=== PATIENT | male | born 1950 | race Caucasian/White ===

== ENCOUNTER 2018-05-11 05:31 | Inpatient (IN) | payer MEDICARE, BC, SELFPAY ==
[2018-04-26 11:10] VITALS: BP 129/73; PULSE 75; RESP 16; TEMP 36.8; O2SAT 97; BMI 37.5
[2018-04-26 12:11] LABS: Absolute Lymphocyte Count 1.28 X10^3/ul (0.83-4.51); Absolute Neutrophil Count 5.7 X10^3/uL (2.0-7.7); Basophil# 0.05 X10^3/uL; Basophil% 0.6 % (0-1); Eosinophil# 0.21 X10^3/uL; Eosinophils% 2.7 % (0-5); Hematocrit 42.9 % (40-54); Hemoglobin 14.7 g/dl (13.0-16.5); Lymphocyte # 1.28 X10^3/ul (4.0); Lymphocyte % 16.4 % (19-41); Mean Corp Hgb Conc 34.3 g/gl (32-36); Mean Corpuscular Hgb 30.2 pg (27.0-32.0); Mean Corpuscular Volume 88.3 fL (80-94); Mean Platelet Vol. 10.2 fl (6.2-12.0); Monocyte# 0.47 X10^3/uL; Neutrophil # 5.67 X10^3/uL (2.7-7.7); Neutrophil % 72.8 % (47-70); POSITIVE COUNT NO; POSITIVE DIFFERENTIAL NO; POSITIVE MORPHOLOGY NO; Platelet Count 187 K/mm3 (150-450); RBC Distribution Width CV 12.8 % (11.6-14.6); RBC Distribution Width SD 40.6 fl (35.1-43.9); Red Blood Count 4.86 M/mm3 (4.6-6.2); White Blood Count 7.8 K/mm3 (4.4-11.0)
[2018-04-26 12:26] LABS: Anion Gap 10 (5-15); BUN 16 mg/dL (7-18); BUN/Creat Ratio 17.2 RATIO (10-20); Calcium,Total 8.8 mg/dL (8.5-10.1); Chloride 106 mmol/L (98-107); Creatinine, Serum 0.93 mg/dL (0.70-1.30); EST Glomerular Filtration Rate 86 mL/min (>60); Est Glom Filt Rate - Afr Amer 104 mL/min (>60); Glucose 114 mg/dL (74-106); Potassium 3.8 mmol/L (3.5-5.1); Sodium Level 139 mmol/L (136-145)
--- NOTE | 2018-04-27 19:41 | PCM.HP.BLA ---
History and Physical DATE OF SURGERY: 05/11/2018 SCHEDULED PROCEDURE: Left Total Knee Arthroplasty HISTORY OF PRESENT ILLNESS: This is a 67-year-old male who has been having ongoing bilateral knee pain for several years. Patient states the right is worse than the left. Patient's pain is intermittent, dull, aching, and sharp patient has increased pain going up and down stairs and standing. He has difficult time getting up from a seated position and does notice clicking in his knees. Pain is located over the medial aspect of bilateral knees. Patient has difficult time with activities of daily living that includes stairs, running, or any rough terrain. Patient has tried conservative measures consisting of rest and previous cortisone injection by his family physician with minimal relief. He has been through home exercises with no relief in symptoms. He has tried compression with no relief in symptoms. She has been on Tylenol and [id number]-[id number] ibuprofen with minimal relief. She has had a total of 3 injections in each knee. He denies any previous surgery on bilateral knees. Patient has a history of hypertension as well as atrial fibrillation in which she has undergone ablations. We are getting surgical clearance from his primary care physician. Patient is on Xarelto. 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 After failing conservative measures and discussing all treatment options with Dr. Mark Gonzalez, the patient does wish to proceed with a left total knee arthroplasty. Patient is planned to undergo a right total knee arthroplasty 6 weeks after the left. Patient currently denies any chest pain, shortness of breath, fevers chills, recent infections. REVIEW OF SYSTEMS: ROS: Const: Denies change in appetite, fever,or weight change. CV: Reports irregular heartbeat, but denies chest pain and heart murmur. Resp: Reports SOB, but denies cough, pneumonia, tuberculosis and wheezing. GI: Denies constipation, diarrhea, difficulty swallowing, heartburn, nausea, bloody stools and vomiting. : Urinary: denies incontinence. Musculo: Reports leg swelling and weakness, but denies limp and trouble walking. Skin: Denies Raynaud's, history of shingles and tattoo. Neuro: Denies ambulatory dysfunction, dizziness, numbness/tingling and tremor. Psych: Denies anxiety, insomnia and stress. Armando/Lymph: Denies anemia, bleeding/bruising tendency and past transfusion. Reviewed, no changes. PAST MEDICAL HISTORY: Advance Care Plan: No Advance Directives Effective Date: 08/07/2017 PMH: Medical Problems: Arthritis, High Blood Pressure, A-Fib Accidents: None Surgical Hx: Cpyo Ablasion - (03/10/2017) LT Total Shoulder - (2011) Benjamín Manning Anesthesia Complications: None Assistive Devices: Glasses Reviewed, no changes. SOCIAL HISTORY: SH: Marital: .Occupation: Retired.Work Status: Retired.Hand Dominance: Right-handed. Personal Habits: Cigarette Use: Never Smoked Cigarettes.Alcohol: Denies use.Drug Use: Denies Use.Enjoy Exercising: Exercises 1-3 X/Week. Reviewed, no changes. VITALS: Ht: 66.5 Wt: 234lb Wt k.142 BMI: 37.2 BP: 140/70 Pulse: 78 Resp: 20 T: 97.3 T: 36.3C ALLERGIES: Lasix Hydrochlorothiazide MEDICATIONS: Xarelto 20 mg 1 by mouth every day, Metoprolol 50 mg 1 tab PO bid, Amlodipine Besylate 2.5 mg 1 by mouth every day, Vitamin D3 1 cap PO daily, Fish Oil 1200 mg 1 cap PO daily, Centrum Men 1 tab PO daily, Latanoprost 0.005 % 2 drops each eye daily, Tylenol Extra Strength 500 mg prn, Omeprazole 20 mg 1po qday PRE-OP EXAM: General appearance:NORMAL Other: Eyes: Conjunctivae and lids: NORMAL Pupils: ERR Ears, Nose, Mouth, and Throat: NORMAL Other: Inspection of lips, teeth and gums: NORMAL Other: Neck: Examination of neck: no masses noted. Respiratory: Assessment of respiratory effort: NORMAL Other: Auscultation of lungs: clear to auscultation no wheezes, rhonchi or rales. Cardiovascular: Auscultation of heart: regular rate and rhythm, no murmurs, gallops or rubs. Exam of carotid arteries: NORMAL Other: Gastrointestinal: Exam of abdomen: soft, nontender, nondistended bowel sounds present. PHYSICAL EXAMINATION: Patient does walk with an antalgic gait. Patient has varus alignment of bilateral knees. Patient's left knee has tenderness to palpation over the medial joint line. There is minimal effusion. Patient has partial correction of the varus alignment. Stable to varus and valgus stress test. Range of motion is 0 extension to 100 of flexion. Right knee range of motion 0 of extension to 110 flexion. Sensation is intact to light touch. Neurovascularly intact. IMAGING STUDIES: X-rays of bilateral knees reveal varus alignment with medial joint space narrowing, subchondral sclerosis, and osteophyte formation consistent with severe bilateral tricompartmental osteoarthritis. There is an osseous fragment in the suprapatellar pouch of the right knee. IMPRESSION: Impression: 1. Severe tricompartmental left knee osteoarthritis 2. Severe right knee tricompartmental osteoarthritis 3. Hypertension 4. History of atrial fibrillation with previous ablation PLAN: Dr. Gonzalez did discuss and review with the patient all treatment options including surgical versus nonsurgical options. Patient does wish to proceed with the above-stated procedure. Potential risks, benefits, and complications of the procedure were discussed in detail including but not limited to , infection, nerve and blood vessel damage, persistent pain, numbness, tingling, paresthesias, blood clot, pulmonary embolism, and requirement for possible further surgery. The patient expressed full understanding and has no further questions for the doctor. Patient does agree to proceed with the above-stated procedure and has signed the surgery consent form. This dictation was created using voice recognition software. Phonetic and/or grammatical errors may exist. ___ I have re-examined the patient. There are no clinical changes since date of exam. ___ See progress notes for changes. ___ Dictated on admission Date: Time: Signature:
--- NOTE | 2018-05-05 13:48 | CASEMGMT ---
Call placed to patient to discuss discharge needs after upcoming surgery. Patient plans to return home with assistance from . Outpatient physical therapy is set up at [facility] and will assist with transportation. Patient does not have a walker, was told that he would have one prescribed while in the hospital. Patient has a shower seat at home, no toilet riser. Will have bed/bath on 1st level of home. There are 2 steps from garage into home. Informed patient that RN-CM will likely follow up with him when he's in the hospital. Ivone Wayne LPN Clinical Support
[2018-05-11] VITALS (11 sets, daily range): BP systolic 97–135; BP diastolic 60–80; PULSE 56–91; RESP 16–18; TEMP 36.1–37.3; O2SAT 93–99; BMI 37.5
[2018-05-11] MEDS: Acetaminophen 500 MG Tablet 1000 MG PO ×3 (06:08→22:26)
[2018-05-11] MEDS: Celecoxib 200 MG Capsule 400 MG PO (06:08)
[2018-05-11] MEDS: oxyCODONE HCl Cr 10 MG Tablet PO (06:08)
[2018-05-11] MEDS: Lactated Ringers 1,000 ML 999 ML IV ×2 (06:33→08:15)
[2018-05-11] MEDS: Cefazolin 2 GM in 0.9% Normal Saline 100 ML IV (07:12)
--- NOTE | 2018-05-11 08:42 | OP.PCM_ITS ---
Report of Operation Date of Procedure: 05/11/18 Pre-Operative Diagnosis: Left knee primary osteoarthritis Post-Operative Diagnosis: Left knee primary osteoarthritis Surgery/Procedure Performed:: Left total knee arthroplasty Description of Surgical Findings:: Stable knee with good patella tracking, posterior stabilized press-fit knee examining officer: Shiva Sam Type of Anesthesia:: Spinal Anesthesiologist: Enrique Flores Special Medications: 2 g Ancef, 1 g TXA at incision, 1 g TXA closure, 10 mg Decadron, joint cocktail (5 mg Duramorph, 30 mL of 0.5% Ropivicaine, 1000 units of epinephrine, 30 mg of Toradol) Specimen's removed: Bony cuts Estimated Blood Loss (mL): 75 Fluids Replaced: 1500 mL crystalloid Description of Procedure: Implants used: 1. [place] size 5 press-fit triathlon posterior stabilized distal femoral component 2. Lissy size 6 press-fit tibial baseplate 3. Lissy X3 16 mm pS polyethylene 4. Lissy X3 35 mm asymmetric patella Brief history operative indications: 67-year-old M with history of left knee osteoarthritis with radiographic findings with loss of joint space, osteophyte formation and subchondral sclerosis. Failed conservative measures as mentioned in the H&P. Discussion of total knee arthroplasty as well as risk and benefits were discussed the patient including but not limited to blood loss, DVTs, PEs, neurovascular damage, general risk of anesthesia including loss of life, and stiffness or instability were discussed with patient. Patient demonstrated understanding and was able to sign informed consent. Procedure: On the date of procedure patient's left lower extremity was marked in the preoperative area. The patient was then taken back to the operating room where the patient was placed on the table in the supine position. All bony prominences were identified a well-padded. Anesthesia assumed control of the C-spine and airway and remained controlled throughout the remainder of the procedure. A tourniquet was placed on the left upper thigh and the leg was prepped in a sterile fashion. The surgeon then scrubbed at this time .Upon reentering the room left lower extremity was draped in a standard orthopedic fashion. A timeout was then called and everyone agreed upon the side, the site, the procedure to be performed, patient's identity and antibiotics given. Esmarch bandage was used to exsanguinate the extremity and the tourniquet was placed up to 250 mmHg with the knee in flexion. A midline skin incision was made and sharp dissection was taken down through skin subcutaneous tissue and fat. The standard medial parapatellar incision was made and the patella was subluxed laterally. The standard deep MCL release was done and the fat pad was resected. Next our attention was directed to the femur. Navigation pins were placed, navigation was registered. The distal femoral cutting block was pinned into place and 10 mm of distal femur resection was completed. The distal femoral cut was verified with navigation. The knee was then placed in deep flexion in the standard [employer] sizing guide was used to place the femoral component in 3? external rotation based on the posterior condyles. A size 5 4-in-1 cutting block was selected and pinned into place. The anterior cut was then made and checked for notching. The subsequent anterior chamfer cuts, posterior condylar cuts and posterior chamfer cuts were made while ensuring the MCL and LCL were protected. Our attention was then turned to the tibia where the navigation pins were placed, navigation was registered. Colto tibial cutting guide was used to make the appropriate tibial cut 90 degrees from the mechanical axis. Navigation was then used to verify the cut. A size 6 tibial base plate was selected. the knee was flexed to 90 degrees and the soft tissues and posterior osteophytes were removed from the joint. 40 cc of the periarticular injection was injected into the posterior medial corner of the joint. Knee was flexed up and the box cut was made for the femur. The appropriate trials were then placed on the femur and tibia. A trial polyethylene was trialed to ensure proper balancing and stability of the knee. Patella tracking, was then verified and corrected appropriately as needed. The appropriate tibial internal rotation was then marked with a bovie. Our attention was then directed to the patella. The patella was everted and a flat resection was made. The lug holes were drilled and the patella trial was placed. Patellar tracking was checked and deemed appropriate. Once we were happy lug holes were drilled for the femur and trial components were removed. Cement was mixed at this time and the tourniquet was let down the tibia was subluxed and pinned into place and the keel was punched and the canal was reamed. Final components were verified and opened, and cement was mixed in a vacuum. Lissy Simplex cement was used. The wound was copiously irrigated with normal saline. When the cement was ready the press-fit components were impacted into place starting with the tibia, femur and finally the patella cemented into place. The trial poly component was placed and the knee was placed in full extension. All excess cement was removed in the process. Once the cement had cured the tracking, alignment and balance were verified and a size 16 mm polyethylene component was placed. Once the final components were placed the wound was copiously irrigated with normal saline solution and the periarticular injection was given. The wound was closed in a layer curtis fashion using #1 vicryl interrupted sutures for the arthrotomy, 2-0 interrupted Vicryl suture for the subcuticular layer and nahed for final skin closure. A sterile compressive dressing was then placed. The patient was then awakened from anesthesia, transferred to the [facility] and transferred to the PACU for recovery. Post op plan DVT ppx: She will be restarted on his Xarelto, thigh high compression stockings Follow up: in office in 2 weeks for wound check PT: to start POD #0 at hospital, outpatient PT should be arranged. My physician assistant housekeeping manager was a vital part of this case. He was important in appropriate retraction during the case, and protection of soft tissues during bony cuts. His intimate knowledge of the case and my steps aided in safe and expedient completion of the procedure as well as appropriate position of the leg during the case. He was also vital in assisting with closure under my direct supervision. Grafts/Implants Used: [place] press-fit posterior stabilized triathlon total knee - Complications None - Admit VTE Documentation VTE Present on Admission: No VTE Mechan Device Prophylaxis: SCD's, Thigh High JANUARY Hose VTE Pharm Prophylaxis ordered?: Yes
--- NOTE | 2018-05-11 09:16 | RAD_ITS ---
STUDY: X-RAY - LEFT KNEE REASON FOR EXAM: Male, 67 years old. Postoperative left knee TECHNIQUE: 2 view(s) of the knee. COMPARISON: None. FINDINGS: The prosthetic components of the arthroplasty appear to be normally seated and articulated with appropriate post surgical features in the surrounding soft tissues. Surrounding osseous structures are otherwise acutely intact. RAD/Knee 1 or 2 Views IMPRESSION: Expected postsurgical features. Correlate with operative report. Electronically Signed: Candido Bazzi, at 10:09 EDT Tel , Service support ,
[2018-05-11] MEDS: Lactated Ringers 1,000 ML 125 ML IV ×2 (10:31→18:18)
[2018-05-11] MEDS: oxyCODONE 5 MG Tablet PO ×3 (12:51→22:31)
[2018-05-11] MEDS: Multivitamins,Ther W-Minerals Tablet 1 TABLET PO (12:52)
[2018-05-11] MEDS: Famotidine 20 MG Tablet PO (12:52)
[2018-05-11] MEDS: Senna/Docusate Sodium 1 Tablet 2 TABLET PO ×2 (12:52→22:26)
[2018-05-11] MEDS: Cefazolin 1 GM/50 ML BAG IV ×2 (14:23→22:26)
--- NOTE | 2018-05-11 16:55 | PN_ITS ---
Subjective: Patient is a 67-year-old male with past medical history of A. fib status post ablation x2 and on Xarelto, and hypertension as well as arthritis of the left knee. He status post total knee replacement on 05/11/2018. Hospitalist service was consulted to help with medical management. Patient seen and examined. He felt well and had no complaints. Pain was well controlled. He had his ablations done at [facility] and states he had to done with the last one being in 2017. He does not think he has been in A. fib since then but has remained on Xarelto as per guidelines. He denies any fever or chills, any cough or chest pain, any shortness of breath, any palpitations, any abdominal pain, any diarrhea or vomiting. 12 point review of systems is otherwise negative. Labs and vitals reviewed. Vitals/I&O's: Vital Signs Temp Pulse Resp BP Pulse Ox 98.5 F 76 18 106/63 93 05/11/18 14:32 05/11/18 14:32 05/11/18 14:32 05/11/18 14:32 05/11/18 14:32 Oxygen Flow Rate (L/min) 2 Oxygen Delivery Method Room Air Weight: 236 lb 8.896 oz Body Mass Index (BMI) 37.5 Intake and Output for Last 24 Hours 05/09/18 05/10/18 05/11/18 23:59 23:59 23:59 Intake Total 1939 Balance 1939 General: Alert, Oriented x3, Cooperative, No apparent distress HEENT: Atraumatic, PERRLA, EOMI, Normocephalic Oral: Moist Mucosa Neck: Supple, No JVD, Negative Carotid Bruits Lungs: Clear to auscultation, Normal air movement, No rhonchi, No wheeze, No rales Cardiovascular: Regular rate, Regular Rhythm, Normal S1, Normal S2, No murmurs Abdomen: Bowel Sounds Present, Soft, Non Tender, Non-Distended, No Hepato- splenomegaly Extremities: No clubbing, No cyanosis, No edema, Capillary Refill Less than 3 Seconds Skin: No rashes, No breakdown Musculoskeletal: - - left knee bandaged; SCDs in place Lymphatic: No Cervical, Supraclavicular, or Inguinal Adenopathy Neurological: Cranial nerves II-XII grossly intact, Neuro grossly intact Psych/Mental Status: Normal Affect, Appropriate, Alert and oriented to time, place, person, mood and affect Current Medications Acetaminophen (Tylenol) 1,000 mg PO Q8 [facility] Last Admin: 05/11/18 14:23 Dose: 1,000 mg Amlodipine Besylate (Norvasc) 10 mg PO DAILY [facility] Cholecalciferol (Vitamin D) 2,000 unit PO DAILYCM [facility] Last Admin: 05/11/18 12:52 Dose: 2,000 unit Famotidine (Pepcid) 20 mg PO DAILY [facility] Last Admin: 05/11/18 12:52 Dose: 20 mg Cefazolin Sodium () 1 gm in 50 mls @ 150 mls/hr IV Q8H [facility] Stop: 05/11/18 23:19 Last Admin: 05/11/18 14:23 Dose: 150 mls/hr Lactated Ringer's () 1,000 mls @ 125 mls/hr IV .Q8H [facility] Last Admin: 05/11/18 10:31 Dose: 125 mls/hr Ketorolac Tromethamine (Toradol) 15 mg IV Q6H PRN PRN PRN Reason: MILD-MOD PAIN (1-5/10) Latanoprost (Xalatan Opthalmic) 1 drop OPHTHALMIC QHS [facility]) [facility] Metoprolol Tartrate (Lopressor (Beta Laurita)) 50 mg PO BID [facility] Morphine Sulfate () 2 - 4 mg IV Q2H PRN PRN PRN Reason: SEVERE PAIN (6-10/10) Morphine Sulfate () 2 - 4 mg IV Q2H PRN PRN PRN Reason: SEVERE PAIN (6-10/10) Multivitamins/Minerals (Multivitamin With Minerals) 1 tablet PO DAILY@0800 [facility] Last Admin: 05/11/18 12:52 Dose: 1 tablet Nutritional Formula (Lactose Free) (Ensure Clear) 120 ml PO TIDCM [facility] Last Admin: 05/11/18 12:58 Dose: 120 ml Ondansetron HCl (Zofran) 4 mg IV Q8H PRN PRN PRN Reason: NAUSEA Oxycodone HCl (Oxyir) 5 - 10 mg PO Q4H PRN PRN PRN Reason: MOD-SEVERE PAIN (4-10/10) Last Admin: 05/11/18 12:51 Dose: 10 mg Pantoprazole Sodium (Protonix) 20 mg PO DAILY PRN PRN PRN Reason: HIATAL HERNIA Promethazine HCl (Phenergan) 12.5 mg IM Q6H PRN PRN; Protocol PRN Reason: NAUSEA/VOMITING Rivaroxaban (Xarelto) 20 mg PO DAILY [facility] Senna/Docusate Sodium (Senokot-S, Padmini-Colace) 2 tablet PO BID [facility] Last Admin: 05/11/18 12:52 Dose: 2 tablet Sodium Chloride () 5 - 30 ml IV UD PRN PRN Reason: SALINE FLUSH Diagnostic Data Knee X-Ray 05/11/18 09:16 IMPRESSION: Expected postsurgical features. Correlate with operative report. Electronically Signed: Candido Bazzi, at 10:09 EDT Tel , Service support , Medical Necessity - Tobacco Use Smoking Status: Never smoker Assessment/Plan 67-year-old man who is status post left knee replacement on account of arthritis. 1. Left knee arthritis s/p left knee replacement- today is POD 0 * pain well controlled * management as per orthopedics * pain meds as per orthopedics 2. Afib s/p ablation x 2 * last had ablation in 2017 at [facility] * xarelto 20m daily on hold currently o/a of surgery * to resume as per orthopedics. * 3. Hypertension * on metoprolol 50mg bid and amlodipine 10mg daily. says his BP usually runs in 130-140s systolic * BP after surgery has been in mainly 100s and 110s. Currently receiving IVF * If BP remains in 100s and 110s, will hold BP meds till tomorrow morning o/a of risk of hypotension after surgery * * DVT prophylaxis: SCDs. To resume xarelto tomorrow, if orthopedics agrees Code status: full code Thank you for the courtesy of the consult. We will continue to follow with you Code Visit Inpatient E&M: 43435 Subs Hosp L2
[2018-05-11] MEDS: Meloxicam 7.5 MG Tablet PO (18:18)
[2018-05-11] MEDS: Metoprolol Tartrate 50 MG Tablet PO (22:26)
[2018-05-11] MEDS: Latanoprost 0.005% 1 Bottle 1 DRP OPHTHALMIC (22:27)
[2018-05-12 02:15] VITALS: BP 113/70; PULSE 71; RESP 16; TEMP 36.8; O2SAT 94
[2018-05-12] MEDS: Acetaminophen 500 MG Tablet 1000 MG PO ×2 (06:10→14:57)
[2018-05-12 06:12] LABS: Hematocrit 38.8 % (40-54); Hemoglobin 13.4 g/dl (13.0-16.5); Mean Corp Hgb Conc 34.5 g/gl (32-36); Mean Corpuscular Hgb 30.8 pg (27.0-32.0); Mean Corpuscular Volume 89.2 fL (80-94); Mean Platelet Vol. 10.5 fl (6.2-12.0); Platelet Count 182 K/mm3 (150-450); RBC Distribution Width CV 12.7 % (11.6-14.6); RBC Distribution Width SD 40.6 fl (35.1-43.9); Red Blood Count 4.35 M/mm3 (4.6-6.2); White Blood Count 17.9 K/mm3 (4.4-11.0)
[2018-05-12 06:15] LABS: Scan Indicated on CBC? Y/N NO
[2018-05-12 06:31] LABS: Anion Gap 10 (5-15); BUN 18 mg/dL (7-18); BUN/Creat Ratio 19.4 RATIO (10-20); Calcium,Total 8.9 mg/dL (8.5-10.1); Chloride 108 mmol/L (98-107); Creatinine, Serum 0.93 mg/dL (0.70-1.30); EST Glomerular Filtration Rate 86 mL/min (>60); Est Glom Filt Rate - Afr Amer 104 mL/min (>60); Glucose 107 mg/dL (74-106); Potassium 4.2 mmol/L (3.5-5.1); Sodium Level 142 mmol/L (136-145)
--- NOTE | 2018-05-12 06:47 | PN.ORTHO_ITS ---
Subjective: The patient was sitting in bedside chair upon examination. Patient denies any chest pain, shortness of breath, dizziness, lightheadedness, nausea or vomiting, or calf pain. Pain is controlled on medications. No adverse overnight events. Patient does wish to try to go home today. Patient has history of atrial fibrillation and takes Xarelto. Objective: Vital signs stable and afebrile. Patient is able to plantarflex and dorsiflex actively. Sensation is intact to light touch to saphenous, sural, superficial and deep peroneal, and tibial distribution. Dressing is mild drainage distal one third. Negative Homans bilaterally, negative signs and symptoms of DVT. - Physical Exam General: Alert, Oriented x3, Cooperative, No apparent distress Vital Signs Temp Pulse Resp BP Pulse Ox 98.2 F 71 16 113/70 94 05/12/18 02:15 05/12/18 02:15 05/12/18 02:15 05/12/18 02:15 05/12/18 02:15 Oxygen Flow Rate (L/min) 2 Oxygen Delivery Method Room Air Weight: 107.3 kg Body Mass Index (BMI) 37.5 Intake and Output for Last 24 Hours 05/10/18 05/11/18 05/12/18 23:59 23:59 23:59 Intake Total 3422 / 3422 1542 / 1542 Balance 3422 / 3422 1542 / 1542 Laboratory Tests Past 24 Hrs 05/12/18 05/12/18 05:30 05:30 WBC 17.9 H RBC 4.35 L Hgb 13.4 Hct 38.8 L MCV 89.2 MCH 30.8 MCHC 34.5 RDW 12.7 RDW Differential 40.6 Plt Count 182 MPV 10.5 Sodium 142 Potassium 4.2 Chloride 108 H Carbon Dioxide 24.0 Anion Gap 10 BUN 18 Creatinine 0.93 Estim Creat Clear Calc 68.60 Est GFR (MDRD) Af Amer 104 Est GFR (MDRD) Non-Af 86 BUN/Creatinine Ratio 19.4 Glucose 107 H Calcium 8.9 Medical Necessity - Tobacco Use Smoking Status: Never smoker Assessment/Plan 1. S/P left total knee arthroplasty POD #1 2. Continue Pain Medications: Tylenol and OxyIR 3. DVT Prophylaxis: Patient has been placed back on his Xarelto 4. PT/OT: Weightbearing as tolerated 5. H & H: 13.4/38.8, asymptomatic 6. Leukocytosis: Currently 17.9, afebrile. Patient did receive Decadron intraoperatively 7. Encouraged Incentive Spirometry 8. Disposition: Plan will be for possible discharge home today if patient tolerates physical therapy and pain is well controlled. Prescriptions will be E scribed to right [facility] in [place]. Patient will follow-up per postop instructions.
--- NOTE | 2018-05-12 06:51 | PCM.DC.TKR ---
Discharge Diet: No Restrictions Discharge Activity: May Not Drive May shower in (days): 1 - Turned dressing away from water Ice area for (Minutes): 20 - every hour while awake. Weight Bearing Status: Weight bearing as tolerated Elevate: Operative Extremity Additional Activity Instructions:: Wear elastic stockings for 2 weeks after your surgery. Call your doctor if your incision/area has: Continuous Slow Oozing, Sudden Increased Bleeding, Increased Pain/ Swelling, Increased Redness, Foul Smelling Discharge Call your doctor if you observe: Fever of 101 or Higher, Coldness, Increased Pain, Numbness or Tingling, Change in Color, Calf discomfort, Uncontrolled pain Remove Dressing in (days):: 4 - Okay to remove on May 16, 2018 Additional Instructions: Follow [facility]opedic postop instructions Allergies/Adverse Reactions: Allergies furosemide [From Lasix] Adverse Reaction (Verified 05/11/18 10:33) gout hydrochlorothiazide Adverse Reaction (Verified 05/11/18 10:33) gout Medications to take at Discharge Amlodipine [Norvasc] 10 mg PO DAILY 04/26/18 Cholecalciferol (Vitamin D3) [Vitamin D3] 2,000 unit PO DAILY 04/26/18 Latanoprost/Pf [Latanoprost 0.005% Eye Drop] 1 drop OP QHS 04/26/18 Metoprolol Tartrate [Lopressor (beta amanda)] 50 mg PO BID 04/26/18 Multivit-Min/FA/Lycopen/Lutein [Centrum Silver Men Tablet] 1 each PO DAILY 04/26/18 Omeprazole [Prilosec] 20 mg PO PRN PRN 04/26/18 Rivaroxaban [Xarelto] 20 mg PO DAILY 04/26/18 Acetaminophen [Tylenol] 1,000 mg PO Q8 #90 tablet 05/12/18 Meloxicam [Mobic] 7.5 mg PO BIDCM #30 tablet 05/12/18 Oxycodone [Oxyir] 5 - 10 mg PO Q4H PRN PRN 5 Days #60 tablet 05/12/18 Senna/Docusate Sodium [Senokot-S] 2 tablet PO BID #20 tablet 05/12/18 The following prescriptions were given: Oxycodone [Oxyir] 5 - 10 mg PO Q4H PRN PRN 5 Days #60 tablet PRN Reason: Mod-Severe Pain (4-04/28) Acetaminophen [Tylenol] 1,000 mg PO Q8 #90 tablet Meloxicam [Mobic] 7.5 mg PO BIDCM #30 tablet Senna/Docusate Sodium [Senokot-S] 2 tablet PO BID #20 tablet Primary Care Physician: Gilles Alberto DO [Primary Care Provider] - Test Results: Test results from this visit will be discussed in further detail at your follow-up appointment, if applicable. Please Follow Up With: [facility] point Physical therapy Please Follow Up With: Shiva Sam PA-C When: 05/24/18 @ 9:00 am
[2018-05-12 07:27] VITALS: PULSE 76
[2018-05-12] MEDS: Senna/Docusate Sodium 1 Tablet 2 TABLET PO (07:27)
[2018-05-12] MEDS: Multivitamins,Ther W-Minerals Tablet 1 TABLET PO (07:27)
[2018-05-12] MEDS: oxyCODONE 5 MG Tablet PO ×2 (07:27→11:54)
[2018-05-12] MEDS: Metoprolol Tartrate 50 MG Tablet PO (07:27)
[2018-05-12] MEDS: Meloxicam 7.5 MG Tablet PO (07:28)
[2018-05-12] MEDS: Famotidine 20 MG Tablet PO (07:28)
[2018-05-12] MEDS: Rivaroxaban 20 MG Tablet PO (07:28)
[2018-05-12] MEDS: amLODIPine 10 MG Tablet PO (07:28)
[2018-05-12 07:31] VITALS: BP 110/64; PULSE 76; RESP 16; TEMP 36.8; O2SAT 94
--- NOTE | 2018-05-12 10:40 | CASEMGMT ---
KALEE SCOTT Face to Face with patient for initial transition planning/care coordination assessment. KALEE SCOTT introduced self and role at [facility]. Patient lying in bed, alert and oriented. Patient willing to participate in assessment and is able to answer all questions appropriately. Care providers, pharmacy, and demographics verified. Patient wishes to discharge home and is setup with [facility] for outpatient therapy with providing transportation. Patient states that he needs a walker. Script obtained from Dr. Gonzalez for FWW. Patient agreeable to [employer] and referral sent and KALEE SCOTT arranged for walker to be delivered to hospital prior to discharge. Patient states he has no further needs or concerns at this time. CM to follow for discharge planning needs that may arise. Disposition Plan: Patient to discharge home with outpatient therapy, family support, and follow-up plans in place. Mary MCKENZIE, RN, CM
[2018-05-12 12:05] VITALS: BP 114/63; PULSE 100; RESP 16; TEMP 36.7; O2SAT 94
--- NOTE | 2018-05-12 14:41 | PCM.PN.HOSP ---
Subjective: The patient is doing good on physical therapy. Walking around the nursing station on walker on the supervision of physical therapist. No chest pain, shortness of breath. Patient wants to go home on outpatient physical therapy Vitals/I&O's: Vital Signs Temp Pulse Resp BP Pulse Ox 98.1 F 100 16 114/63 94 05/12/18 12:05 05/12/18 12:05 05/12/18 12:05 05/12/18 12:05 05/12/18 12:05 Oxygen Flow Rate (L/min) 2 Oxygen Delivery Method Room Air Weight: 236 lb 8.896 oz Body Mass Index (BMI) 37.5 Intake and Output for Last 24 Hours 05/10/18 05/11/18 05/12/18 23:59 23:59 23:59 Intake Total 3422 / 3422 2041 Balance 342 / 3422 2041 General: Alert, Oriented x3, Cooperative HEENT: Atraumatic, PERRLA, EOMI, Normocephalic Neck: Supple, No JVD, Negative Carotid Bruits Lungs: Clear to auscultation, Normal air movement, No rhonchi, No wheeze, No rales Cardiovascular: Regular rate, Regular Rhythm, Normal S1, Normal S2, No murmurs Abdomen: Bowel Sounds Present, Soft, Non Tender, Non-Distended Extremities: Capillary Refill Less than 3 Seconds, Edema - Postsurgical reactive edema of left knee. Left knee Omkar wrap bandage Skin: No rashes, No breakdown Musculoskeletal: No Tenderness to Palpation of Joints or Extremities, Arthritic Changes Neurological: Cranial nerves II-XII grossly intact Psych/Mental Status: Normal Affect, Appropriate Laboratory Results 05/12/18 05:30: WBC 17.9 H, RBC 4.35 L, Hgb 13.4, Hct 38.8 L, MCV 89.2, MCH 30.8, MCHC 34.5, RDW 12.7, RDW Differential 40.6, Plt Count 182, MPV 10.5 05/12/18 05:30: Sodium 142, Potassium 4.2, Chloride 108 H, Carbon Dioxide 24.0, Anion Gap 10, BUN 18, Creatinine 0.93, Estim Creat Clear Calc 68.60, Est GFR (MDRD) Af Amer 104, Est GFR (MDRD) Non-Af 86, BUN/Creatinine Ratio 19.4, Glucose 107 H, Calcium 8.9 Current Medications Acetaminophen (Tylenol) 1,000 mg PO Q8 [facility] Last Admin: 05/12/18 06:10 Dose: 1,000 mg Amlodipine Besylate (Norvasc) 10 mg PO DAILY [facility] Last Admin: 05/12/18 07:28 Dose: 10 mg [facility]: 05/12/18 07:28 Dose: 2,000 unit Famotidine (Pepcid) 20 mg PO DAILY [facility] Last Admin: 05/12/18 07:28 Dose: 20 mg Ketorolac Tromethamine (Toradol) 15 mg IV Q6H PRN PRN PRN Reason: MILD-MOD PAIN (1-5/10) Latanoprost (Xalatan Opthalmic) 1 drop OPHTHALMIC QHS [facility] Last Admin: 05/11/18 22:27 Dose: 1 drop [facility] Last Admin: 05/12/18 07:28 Dose: 7.5 mg Metoprolol Tartrate (Lopressor (Beta Laurita)) 50 mg PO BID [facility] Last Admin: 05/12/18 07:27 Dose: 50 mg Morphine Sulfate () 2 - 4 mg IV Q2H PRN PRN PRN Reason: SEVERE PAIN (6-10/10) Morphine Sulfate () 2 - 4 mg IV Q2H PRN PRN PRN Reason: SEVERE PAIN (6-10/10) Multivitamins/Minerals (Multivitamin With Minerals) 1 tablet PO DAILY@0800 [facility] Last Admin: 05/12/18 07:27 Dose: 1 tablet Nutritional Formula (Lactose Free) (Ensure Clear) 120 ml PO TIDCM [facility] Last Admin: 05/12/18 11:55 Dose: 120 ml Ondansetron HCl (Zofran) 4 mg IV Q8H PRN PRN PRN Reason: NAUSEA Oxycodone HCl (Oxyir) 5 - 10 mg PO Q4H PRN PRN PRN Reason: MOD-SEVERE PAIN (4-10/10) Last Admin: 05/12/18 11:54 Dose: 10 mg Pantoprazole Sodium (Protonix) 20 mg PO DAILY PRN PRN PRN Reason: HIATAL HERNIA Promethazine HCl (Phenergan) 12.5 mg IM Q6H PRN PRN; Protocol PRN Reason: NAUSEA/VOMITING Rivaroxaban (Xarelto) 20 mg PO DAILY [facility] Last Admin: 05/12/18 07:28 Dose: 20 mg Senna/Docusate Sodium (Senokot-S, Padmini-Colace) 2 tablet PO BID [facility] Last Admin: 05/12/18 07:27 Dose: 2 tablet Sodium Chloride () 5 - 30 ml IV UD PRN PRN Reason: SALINE FLUSH Medical Necessity - Tobacco Use Smoking Status: Never smoker Assessment/Plan Patient is a 67-year-old male with past medical history of A. fib status post ablation x2 and on Xarelto, and hypertension as well as arthritis of the left knee. He status post left total knee replacement on 05/11/2018. Hospitalist service was consulted to help with medical management. Patient was seen and examined. Pain was well controlled. He had his ablations done at [facility] and states he had to done with the last one being in 2017. He does not think he has been in A. fib since then but has remained on Xarelto as per guidelines. He denies any fever or chills, any cough or chest pain, any shortness of breath, any palpitations, any abdominal pain, any diarrhea or vomiting. Labs are reviewed. Patient has mild leukocytosis after surgery 17,000 probably inflammatory. Hemoglobin 13.4/hematocrit 38.8. Electrolytes are within normal limit. No fever, no signs of infection or sepsis. Patient is walking around the nursing station. Patient is a stable to be discharged to home with home/outpatient physical therapy. Hospitalist team will sign off Discharge meds reconciliation done Discharge summary as per orthopedic team Code Visit Inpatient E&M: 83959 Subs Hosp L2
--- NOTE | 2018-05-12 14:47 | PN_ITS ---
Subjective: The patient is doing good on physical therapy. Walking around the nursing station on walker on the supervision of physical therapist. No chest pain, shortness of breath. Patient wants to go home on outpatient physical therapy Vitals/I&O's: Vital Signs Temp Pulse Resp BP Pulse Ox 98.1 F 100 16 114/63 94 05/12/18 12:05 05/12/18 12:05 05/12/18 12:05 05/12/18 12:05 05/12/18 12:05 Oxygen Flow Rate (L/min) 2 Oxygen Delivery Method Room Air Weight: 236 lb 8.896 oz Body Mass Index (BMI) 37.5 Intake and Output for Last 24 Hours 05/10/18 05/11/18 05/12/18 23:59 23:59 23:59 Intake Total 3422 / 3422 2041 Balance 342 / 3422 2041 General: Alert, Oriented x3, Cooperative HEENT: Atraumatic, PERRLA, EOMI, Normocephalic Neck: Supple, No JVD, Negative Carotid Bruits Lungs: Clear to auscultation, Normal air movement, No rhonchi, No wheeze, No rales Cardiovascular: Regular rate, Regular Rhythm, Normal S1, Normal S2, No murmurs Abdomen: Bowel Sounds Present, Soft, Non Tender, Non-Distended Extremities: Capillary Refill Less than 3 Seconds, Edema - Postsurgical reactive edema of left knee. Left knee Omkar wrap bandage Skin: No rashes, No breakdown Musculoskeletal: No Tenderness to Palpation of Joints or Extremities, Arthritic Changes Neurological: Cranial nerves II-XII grossly intact Psych/Mental Status: Normal Affect, Appropriate Laboratory Results 05/12/18 05:30: WBC 17.9 H, RBC 4.35 L, Hgb 13.4, Hct 38.8 L, MCV 89.2, MCH 30.8, MCHC 34.5, RDW 12.7, RDW Differential 40.6, Plt Count 182, MPV 10.5 05/12/18 05:30: Sodium 142, Potassium 4.2, Chloride 108 H, Carbon Dioxide 24.0, Anion Gap 10, BUN 18, Creatinine 0.93, Estim Creat Clear Calc 68.60, Est GFR (MDRD) Af Amer 104, Est GFR (MDRD) Non-Af 86, BUN/Creatinine Ratio 19.4, Glucose 107 H, Calcium 8.9 Current Medications Acetaminophen (Tylenol) 1,000 mg PO Q8 [facility] Last Admin: 05/12/18 06:10 Dose: 1,000 mg Amlodipine Besylate (Norvasc) 10 mg PO DAILY [facility] Last Admin: 05/12/18 07:28 Dose: 10 mg Cholecalciferol ([facility]itamin D) [facility] Admin: 05/12/18 07:28 Dose: 2,000 unit Famotidine (Pepcid) 20 mg PO DAILY [facility] Last Admin: 05/12/18 07:28 Dose: 20 mg Ketorolac Tromethamine (Toradol) 15 mg IV Q6H PRN PRN PRN Reason: MILD-MOD PAIN (1-5/10) Latanoprost (Xalatan Opthalmic) 1 drop OPHTHALMIC QHS [facility] Last Admin: 05/11/18 22:27 Dose: 1 drop Meloxicam (Mobic) [facility] Last Admin: 05/12/18 07:28 Dose: 7.5 mg Metoprolol Tartrate (Lopressor (Beta Laurita)) 50 mg PO BID [facility] Last Admin: 05/12/18 07:27 Dose: 50 mg Morphine Sulfate () 2 - 4 mg IV Q2H PRN PRN PRN Reason: SEVERE PAIN (6-10/10) Morphine Sulfate () 2 - 4 mg IV Q2H PRN PRN PRN Reason: SEVERE PAIN (6-10/10) Multivitamins/Minerals (Multivitamin With Minerals) 1 tablet PO DAILY@0800 [facility] Last Admin: 05/12/18 07:27 Dose: 1 tablet Nutritional Formula (Lactose Free) (Ensure Clear) 120 ml PO TIDCM [facility] Last Admin: 05/12/18 11:55 Dose: 120 ml Ondansetron HCl (Zofran) 4 mg IV Q8H PRN PRN PRN Reason: NAUSEA Oxycodone HCl (Oxyir) 5 - 10 mg PO Q4H PRN PRN PRN Reason: MOD-SEVERE PAIN (4-10/10) Last Admin: 05/12/18 11:54 Dose: 10 mg Pantoprazole Sodium (Protonix) 20 mg PO DAILY PRN PRN PRN Reason: HIATAL HERNIA Promethazine HCl (Phenergan) 12.5 mg IM Q6H PRN PRN; Protocol PRN Reason: NAUSEA/VOMITING Rivaroxaban (Xarelto) 20 mg PO DAILY [facility] Last Admin: 05/12/18 07:28 Dose: 20 mg Senna/Docusate Sodium (Senokot-S, Padmini-Colace) 2 tablet PO BID [facility] Last Admin: 05/12/18 07:27 Dose: 2 tablet Sodium Chloride () 5 - 30 ml IV UD PRN PRN Reason: SALINE FLUSH Medical Necessity - Tobacco Use Smoking Status: Never smoker Assessment/Plan Patient is a 67-year-old male with past medical history of A. fib status post ablation x2 and on Xarelto, and hypertension as well as arthritis of the left knee. He status post left total knee replacement on 05/11/2018. Hospitalist service was consulted to help with medical management. Patient was seen and examined. Pain was well controlled. He had his ablations done at [facility] and states he had to done with the last one being in 2017. He does not think he has been in A. fib since then but has remained on Xarelto as per guidelines. He denies any fever or chills, any cough or chest pain, any shortness of breath, any palpitations, any abdominal pain, any diarrhea or vomiting. Labs are reviewed. Patient has mild leukocytosis after surgery 17,000 probably inflammatory. Hemoglobin 13.4/hematocrit 38.8. Electrolytes are within normal limit. No fever, no signs of infection or sepsis. Patient is walking around the nursing station. Patient is a stable to be discharged to home with home/outpatient physical therapy. Hospitalist team will sign off Discharge meds reconciliation done Discharge summary as per orthopedic team Code Visit Inpatient E&M: [id number] Subs Hosp L2
[2018-05-12 15:03] VITALS: BP 106/67; PULSE 80; RESP 16; TEMP 36.2; O2SAT 92
== END 2018-05-12 15:55 | disposition home or self-care (01) | DRG 470 ==
PROVIDERS: Admitting Provider Specialist; Family Provider Family Medicine; PCP Family Medicine; Referring Provider Specialist; Visit Provider Specialist
PROC: 0SRD0J9 Replacement of Left Knee Joint with Synthetic Substitute, Cemented, Open Approach (ICD-10-PCS; CPT 27447; principal; 2018-05-11 06:45)
DX: M17.0 Bilateral primary osteoarthritis of knee (principal); I10 Essential (primary) hypertension; I48.91 Unspecified atrial fibrillation; Z79.01 Long term (current) use of anticoagulants
CPT/HCPCS: 36415; 73560; 80048; 85025; 85027; 87081; 97110; 97162; 97165; 97530; C1776; J7120

== ENCOUNTER 2018-06-22 05:26 | Inpatient (IN) | payer MEDICARE, BC, SELFPAY ==
[2018-06-07 10:14] VITALS: BP 124/71; PULSE 68; RESP 16; TEMP 36.6; O2SAT 97; BMI 36.1
[2018-06-07 11:28] LABS: Absolute Lymphocyte Count 1.14 X10^3/ul (0.83-4.51); Absolute Neutrophil Count 5.7 X10^3/uL (2.0-7.7); Basophil# 0.03 X10^3/uL; Basophil% 0.4 % (0-1); Eosinophils% 1.3 % (0-5); Hematocrit 42.7 % (40-54); Hemoglobin 14.2 g/dl (13.0-16.5); Lymphocyte # 1.14 X10^3/ul (4.0); Mean Corp Hgb Conc 33.3 g/gl (32-36); Mean Corpuscular Hgb 30.1 pg (27.0-32.0); Mean Corpuscular Volume 90.7 fL (80-94); Mean Platelet Vol. 10.3 fl (6.2-12.0); Monocyte# 0.56 X10^3/uL; Monocyte% 7.4 % (0-10); Neutrophil # 5.73 X10^3/uL (2.7-7.7); Neutrophil % 75.4 % (47-70); Platelet Count 199 K/mm3 (150-450); RBC Distribution Width CV 12.8 % (11.6-14.6); RBC Distribution Width SD 42.3 fl (35.1-43.9); Red Blood Count 4.71 M/mm3 (4.6-6.2); White Blood Count 7.6 K/mm3 (4.4-11.0)
[2018-06-07 11:29] LABS: POSITIVE COUNT NO; POSITIVE DIFFERENTIAL NO; POSITIVE MORPHOLOGY NO
[2018-06-07 11:44] LABS: Anion Gap 14 (5-15); BUN 17 mg/dL (7-18); Calcium,Total 8.5 mg/dL (8.5-10.1); Chloride 105 mmol/L (98-107); EST Glomerular Filtration Rate 79 mL/min (>60); Est Glom Filt Rate - Afr Amer 95 mL/min (>60); Glucose 108 mg/dL (74-106); Potassium 3.6 mmol/L (3.5-5.1); Sodium Level 143 mmol/L (136-145)
--- NOTE | 2018-06-09 10:53 | PCM.HP.BLA ---
History and Physical DATE OF SURGERY: 06/22/2018 SCHEDULED PROCEDURE: Right Total Knee Arthroplasty HISTORY OF PRESENT ILLNESS: This is a 67-year-old male who is had ongoing pain in bilateral knees for several years. Patient recently underwent a left total knee arthroplasty on May 11, 2018. Patient is doing well from the left total knee arthroplasty. Patient continues to have ongoing right knee pain. Pain can reach as high as an 8/10. Pain is increased with walking and standing. He does have start up pain. He has clicking in the right knee when going from a seated to standing position. He does have pain over the medial aspect of the right knee. Patient has difficult time with activities of daily living includes going up and down stairs, or any rough terrain. Patient has tried previous corticosteroid injection with minimal relief. He has been doing home exercises with no relief in symptoms. Patient has also tried compression with no relief in symptoms. Patient has tried oral medications consisting of Tylenol and srvg-zul-xiwnytt ibuprofen with minimal relief. Patient has undergone ablations in the past. We have obtain surgical clearance from patient's primary care physician and certified alcohol and drug counselor. Patient will stop his Xarelto 3 days prior to surgery. After failing conservative measures and discussing all treatment options with Dr. Mark Gonzalez, the patient would like to proceed with a right total knee arthroplasty. He currently denies any chest pain, shortness of breath, fevers chills, or calf pain. REVIEW OF SYSTEMS: ROS: Const: Denies change in appetite, fever,or weight change. CV: Reports irregular heartbeat, but denies chest pain and heart murmur. Resp: Reports SOB, but denies cough, pneumonia, tuberculosis and wheezing. GI: Denies constipation, diarrhea, difficulty swallowing, heartburn, nausea, bloody stools and vomiting. : Urinary: denies incontinence. Musculo: Reports leg swelling and weakness, but denies limp and trouble walking. Skin: Denies Raynaud's, history of shingles and tattoo. Neuro: Denies ambulatory dysfunction, dizziness, numbness/tingling and tremor. Psych: Denies anxiety, insomnia and stress. Armando/Lymph: Denies anemia, bleeding/bruising tendency and past transfusion. Reviewed, no changes. PAST MEDICAL HISTORY: Advance Care Plan: No Advance Directives Effective Date: 08/07/2017 PMH: Medical Problems: Arthritis, High Blood Pressure, A-Fib Accidents: None Surgical Hx: Cpyo Ablasion - (03/10/2017) LT Total Shoulder - (2011) Benjamín Manning LT TKR - (05/11/2018) SAW @ [facility] [place] [facility] Anesthesia Complications: None Assistive Devices: Glasses Reviewed, no changes. SOCIAL HISTORY: SH: Marital: .Occupation: Retired.Work Status: Retired.Hand Dominance: Right-handed. Personal Habits: Cigarette Use: Never Smoked Cigarettes.Alcohol: Denies use.Drug Use: Denies Use.Enjoy Exercising: Exercises 1-3 X/Week. Reviewed, no changes. VITALS: Ht: 66.5 Wt: 227lb Wt k.967 BMI: 36.1 BP: 118/68 Pulse: 72 Resp: 20 T: 98.0 T: 36.7C ALLERGIES: Lasix Hydrochlorothiazide MEDICATIONS: Xarelto 20 mg 1 by mouth every day, Metoprolol 50 mg 1 tab PO bid, Amlodipine Besylate 2.5 mg 1 by mouth every day, Vitamin D3 1 cap PO daily, Fish Oil 1200 mg 1 cap PO daily, Centrum Men 1 tab PO daily, Latanoprost 0.005 % 2 drops each eye daily, Tylenol Extra Strength 500 mg prn, Omeprazole 20 mg 1po qday PRE-OP EXAM: General appearance:NORMAL Other: Eyes: Conjunctivae and lids: NORMAL Pupils: ERR Ears, Nose, Mouth, and Throat: NORMAL Other: Inspection of lips, teeth and gums: NORMAL Other: Neck: Examination of neck: no masses noted. Respiratory: Assessment of respiratory effort: NORMAL Other: Auscultation of lungs: clear to auscultation no wheezes, rhonchi or rales. Cardiovascular: Auscultation of heart: regular rate and rhythm, no murmurs, gallops or rubs. Exam of carotid arteries: NORMAL Other: Gastrointestinal: Exam of abdomen: soft, nontender, nondistended bowel sounds present. PHYSICAL EXAMINATION: Patient has varus alignment with the right knee. Patient has tenderness to palpation of the medial joint line of the right knee. Range of motion right knee 0 of extension to 110 of flexion. Stable to varus and valgus stress test. Sensation intact to light touch. Left knee incision is healing well without erythema or signs of infection. IMAGING STUDIES: X-rays of the right knee reveal varus alignment with medial joint space narrowing, subchondral sclerosis, and osteophyte formation consistent with severe right knee tricompartmental osteoarthritis. There is osseous fragment in the suprapatellar pouch of the right knee. IMPRESSION: 1. Severe tricompartmental right knee osteoarthritis 2. Status post left total knee arthroplasty March 11, 2018 3. Hypertension 4. History of atrial fibrillation with previous ablation PLAN: Dr. Mark Gonzalez did discuss and review with the patient all treatment options including surgical versus nonsurgical options. Patient does wish to proceed with the above-stated procedure. Potential risks, benefits, and complications of the procedure were discussed in detail including but not limited to , infection, nerve and blood vessel damage, persistent pain, numbness, tingling, paresthesias, blood clot, pulmonary embolism, and requirement for possible further surgery. The patient expressed full understanding and has no further questions for the doctor. Patient does agree to proceed with the above-stated procedure and has signed the surgery consent form. This dictation was created using voice recognition software. Phonetic and/or grammatical errors may exist.. ___ I have re-examined the patient. There are no clinical changes since date of exam. ___ See progress notes for changes. ___ Dictated on admission Date: Time: Signature:
[2018-06-22] VITALS (15 sets, daily range): BP systolic 95–138; BP diastolic 62–83; PULSE 63–87; RESP 16–18; TEMP 36.4–37.1; O2SAT 91–100; BMI 36.1; BMI 36.0
[2018-06-22] MEDS: oxyCODONE HCl Cr 10 MG Tablet PO (06:02)
[2018-06-22] MEDS: Celecoxib 200 MG Capsule 400 MG PO (06:02)
[2018-06-22] MEDS: Acetaminophen 500 MG Tablet 1000 MG PO ×3 (06:02→21:31)
[2018-06-22] MEDS: Lactated Ringers 1,000 ML 999 ML IV ×2 (06:35→07:00)
[2018-06-22] MEDS: Cefazolin 2 GM in 0.9% Normal Saline 100 ML IV (06:55)
--- NOTE | 2018-06-22 08:26 | OP.PCM_ITS ---
Report of Operation Date of Procedure: 06/22/18 Pre-Operative Diagnosis: Right knee primary osteoarthritis Post-Operative Diagnosis: Right knee primary osteoarthritis Surgery/Procedure Performed:: Right press-fit posterior stabilized total knee replacement Description of Surgical Findings:: Stable knee with good patella tracking car clerk pullman: Shiva Sam Type of Anesthesia:: Spinal Anesthesiologist: Enrique Flores Special Medications: 2 g Ancef, 2 g TXA with 1 minute lavage at end of case, 10 mg Decadron, joint cocktail (5 mg Duramorph, 30 mL of 0.5% Ropivicaine, 1000 units of epinephrine, 30 mg of Toradol) Specimen's removed: Bony cuts Estimated Blood Loss (mL): 50 Fluids Replaced: 1300 mL crystalloid Description of Procedure: Implants used: 1. Lissy size 5 triathlon posterior stabilized distal femoral component 2. Lissy size 6 universal tibial baseplate 3. [place] X3 13 mm CS polyethylene 4. [place] X3 35 mm asymmetric patella Brief history operative indications: 67-year-old m with history of right knee osteoarthritis with radiographic findings with loss of joint space, osteophyte formation and subchondral sclerosis. Failed conservative measures as mentioned in the H&P. Discussion of total knee arthroplasty as well as risk and benefits were discussed the patient including but not limited to blood loss, DVTs, PEs, neurovascular damage, general risk of anesthesia including loss of life, and stiffness or instability were discussed with patient. Patient demonstrated understanding and was able to sign informed consent. Procedure: On the date of procedure patient's right lower extremity was marked in the preoperative area. The patient was then taken back to the operating room where the patient was placed on the table in the supine position. All bony prominences were identified a well-padded. Anesthesia assumed control of the C-spine and airway and remained controlled throughout the remainder of the procedure. A tourniquet was placed on the right upper thigh and the leg was prepped in a sterile fashion. The surgeon then scrubbed at this time. Upon reentering the room the right lower extremity was draped in a standard orthopedic fashion. A timeout was then called and everyone agreed upon the side, the site, the procedure to be performed, patient's identity and antibiotics given. Esmarch bandage was used to exsanguinate the extremity and the tourniquet was placed up to 250 mmHg with the knee in flexion. A midline skin incision was made and sharp dissection was taken down through skin subcutaneous tissue and fat. The standard medial parapatellar incision was made and the patella was sub luxed laterally. The standard deep MCL release was done and the fat pad was resected. Next our attention was directed to the femur. Navigation pins were placed, navigation was registered. The distal femoral cutting block was pinned into place and 10 mm of distal femur resection was completed. The distal femoral cut was verified with navigation. The knee was then placed in deep flexion in the s R2integrated sizing guide was used to place the femoral component in 3? external rotation based on the posterior condyles. A size 5 4-in-1 cutting block was selected and pinned into place. The anterior cut was then made and checked for notching. The subsequent anterior chamfer cuts, posterior condylar cuts and posterior chamfer cuts were made while ensuring the MCL and LCL were protected. Our attention was then turned to the tibia where the [employer] tibial cutting guide was used to make the appropriate tibial cut 90 degrees from the mechanical axis. A size 6 tibial base plate was selected. the knee was flexed to 90 degrees and the soft tissues and posterior osteophytes were removed from the joint. 40 cc of the periarticular injection was injected into the posterior medial corner of the joint. Knee was flexed up and the box cut was made using the FiFully box cut guide The appropriate trials were then placed on the femur and tibia. A trial polyethylene was trialed to ensure proper balancing and stability of the knee. Patella tracking, was then verified and corrected appropriately as needed. The appropriate tibial internal rotation was then marked with a bovie. Our attention was then directed to the patella. The patella was everted and a flat resection was made. The lug holes were drilled and the patella trial was placed. Patellar tracking was checked and deemed appropriate. Once we were happy lug holes were drilled for the femur and trial components were removed. the tibia was subluxed and pinned into place and the keel was punched and the canal was reamed. Final components were verified and opened, and cement was mixed in a vacuum. [place] Simplex cement was used. The wound was copiously irrigated with normal saline. When the cement was ready the components were cemented into place starting with the tibia, femur and finally the patella. The trial poly component was placed and the knee was placed in full extension. All excess cement was removed in the process. Once the cement had cured the tracking, alignment and balance were verified and a size 13 mm polyethylene component was placed. Once the final components were placed the wound was copiously irrigated with normal saline solution and the periarticular injection was given. The wound was closed in a layer curtis fashion using #1 vicryl interrupted sutures for the arthrotomy, 2-0 interrupted Vicryl suture for the subcuticular layer and nahed for final skin closure. A sterile compressive dressing was then placed. The patient was then awakened from anesthesia, [facility] PAC[facility] for recovery. Post op plan DVT ppx: She will be placed back on his Xarelto tomorrow, thigh high compression stockings Follow up: in office in 2 weeks for wound check PT: to start POD #0 at hospital, outpatient PT should be arranged. My physician assistant women's tennis coach was a vital part of this case. He was important in appropriate retraction during the case, and protection of soft tissues during bony cuts. His intimate knowledge of the case and my steps aided in safe and expedient completion of the procedure as well as appropriate position of the leg during the case. He was also vital in assisting with closure under my direct supervision. Grafts/Implants Used: [place] triathlon posterior stabilized press-fit - Complications None - Admit VTE Documentation VTE Present on Admission: No VTE Mechan Device Prophylaxis: SCD's, Thigh High JANUARY Hose VTE Pharm Prophylaxis ordered?: Yes
--- NOTE | 2018-06-22 09:15 | RAD_ITS ---
STUDY: X-RAY - RIGHT KNEE REASON FOR EXAM: Male, 67 years old. Total knee replacement. TECHNIQUE: 2 view(s) of the knee. COMPARISON: None. FINDINGS: Normal visualized distal femur. Normal visualized proximal tibia and fibula. Normal proximal tibiofibular articulation. The patient is status post total knee replacement. There is good alignment. Postoperative soft tissue changes RAD/Knee 1 or 2 Views IMPRESSION: The patient is status post total knee replacement. There is good alignment. Postoperative soft tissue changes. Electronically Signed: Ishmael Goldberg MD at 10:18 EST Tel [phone], Service support ,
--- NOTE | 2018-06-22 10:46 | NURSING ---
does not receive the flu vaccine
[2018-06-22] MEDS: Lactated Ringers 1,000 ML 125 ML IV ×2 (10:59→19:32)
[2018-06-22] MEDS: Senna/Docusate Sodium 1 Tablet 2 TABLET PO ×2 (11:00→21:32)
[2018-06-22] MEDS: Famotidine 20 MG Tablet PO (11:00)
[2018-06-22] MEDS: Scopolamine 1mg/72hr Patch 1 PATCH TD (13:32)
[2018-06-22] MEDS: Cefazolin 1 GM/50 ML BAG IV ×2 (14:35→23:28)
[2018-06-22] MEDS: oxyCODONE 5 MG Tablet PO (17:50)
[2018-06-22] MEDS: Metoprolol Tartrate 50 MG Tablet PO (21:31)
[2018-06-22] MEDS: Latanoprost 0.005% 1 Bottle 1 DRP OPHTHALMIC (21:32)
[2018-06-23 02:12] VITALS: BP 122/74; PULSE 68; RESP 18; TEMP 36.7; O2SAT 96
[2018-06-23] MEDS: Acetaminophen 500 MG Tablet 1000 MG PO (05:49)
[2018-06-23 05:51] LABS: Hematocrit 38.5 % (40-54); Hemoglobin 13.2 g/dl (13.0-16.5); Mean Corp Hgb Conc 34.3 g/gl (32-36); Mean Corpuscular Hgb 30.6 pg (27.0-32.0); Mean Corpuscular Volume 89.1 fL (80-94); Mean Platelet Vol. 10.6 fl (6.2-12.0); Platelet Count 229 K/mm3 (150-450); RBC Distribution Width CV 12.1 % (11.6-14.6); RBC Distribution Width SD 38.3 fl (35.1-43.9); Red Blood Count 4.32 M/mm3 (4.6-6.2); White Blood Count 17.8 K/mm3 (4.4-11.0)
[2018-06-23] MEDS: Ketorolac 15 MG/ML Vial IV (05:52)
[2018-06-23] MEDS: 0.9% NaCl Peripheral Flush Adult/Peds IV (05:52)
[2018-06-23 06:10] LABS: Anion Gap 9 (5-15); BUN 16 mg/dL (7-18); BUN/Creat Ratio 17.3 RATIO (10-20); Calcium,Total 8.8 mg/dL (8.5-10.1); Chloride 108 mmol/L (98-107); Creatinine, Serum 0.92 mg/dL (0.70-1.30); EST Glomerular Filtration Rate 87 mL/min (>60); Est Glom Filt Rate - Afr Amer 105 mL/min (>60); Estimated Creatinine Clearance 69.35 ml/min; Glucose 110 mg/dL (74-106); Potassium 4.1 mmol/L (3.5-5.1); Sodium Level 141 mmol/L (136-145)
[2018-06-23 06:11] LABS: Scan Indicated on CBC? Y/N NO
--- NOTE | 2018-06-23 07:02 | PN.ORTHO_ITS ---
Subjective: The patient was sitting in bedside chair upon examination. Patient denies any chest pain, shortness of breath, dizziness, lightheadedness, nausea or vomiting, or calf pain. Pain is controlled on medications. No adverse overnight events. Overall patient is doing well. Patient does wish to go home today. Objective: Vital signs stable and afebrile. Patient is able to plantarflex and dorsiflex actively. Sensation is intact to light touch to saphenous, sural, superficial and deep peroneal, and tibial distribution. Dressing is clean dry and intact. Negative Homans bilaterally, negative signs and symptoms of DVT. - Physical Exam General: Alert, Oriented x3, Cooperative, No apparent distress Vital Signs Temp Pulse Resp BP Pulse Ox 98.0 F 68 18 122/74 H 96 06/23/18 02:12 06/23/18 02:12 06/23/18 02:12 06/23/18 02:12 06/23/18 02:12 Oxygen Flow Rate (L/min) 2 Oxygen Delivery Method Room Air Weight: 102.965 kg Body Mass Index (BMI) 36.0 Intake and Output for Last 24 Hours 06/21/18 06/22/18 06/23/18 23:59 23:59 23:59 Intake Total 4270 / 4270 699 / 699 Output Total 100 / 100 Balance 4170 / 4170 699 / 699 Laboratory Tests Past 24 Hrs 06/23/18 06/23/18 05:24 05:24 WBC 17.8 H RBC 4.32 L Hgb 13.2 Hct 38.5 L MCV 89.1 MCH 30.6 MCHC 34.3 RDW 12.1 RDW Differential 38.3 Plt Count 229 MPV 10.6 Sodium 141 Potassium 4.1 Chloride 108 H Carbon Dioxide 24.0 Anion Gap 9 BUN 16 Creatinine 0.92 Estim Creat Clear Calc 69.35 Est GFR (MDRD) Af Amer 105 Est GFR (MDRD) Non-Af 87 BUN/Creatinine Ratio 17.3 Glucose 110 H Calcium 8.8 Medical Necessity - Tobacco Use Smoking Status: Never smoker Assessment/Plan 1. S/P right total knee arthroplasty POD #1 2. Continue Pain Medications: Tylenol and OxyIR 3. DVT Prophylaxis: Patient has been placed back on his Xarelto 20 mg daily. 4. PT/OT: Weightbearing as tolerated 5. H & H: 13.2/38.5, asymptomatic 6. Reactive leukocytosis: Currently 17.8, afebrile. Patient did receive Decadron intraoperatively 7. Encouraged Incentive Spirometry 8. Disposition: Plan is for discharge home this afternoon if pain is controlled, patient tolerates therapy. Prescriptions will be E scribed to [facility] in [place]. Patient will follow-up per postop instructions..
--- NOTE | 2018-06-23 07:14 | PCM.DC.TKR ---
Discharge Diet: No Restrictions Discharge Activity: May Not Drive May shower in (days): 1 - Turned dressing away from water Ice area for (Minutes): 20 - every hour while awake. Weight Bearing Status: Weight bearing as tolerated Elevate: Operative Extremity Additional Activity Instructions:: Wear elastic stockings for 2 weeks after your surgery. Call your doctor if your incision/area has: Continuous Slow Oozing, Sudden Increased Bleeding, Increased Pain/ Swelling, Increased Redness, Foul Smelling Discharge Call your doctor if you observe: Fever of 101 or Higher, Coldness, Increased Pain, Numbness or Tingling, Change in Color, Calf discomfort, Uncontrolled pain Remove Dressing in (days):: 4 - Okay to remove on June 27, 2018 Additional Instructions: Follow [facility] postop instructions Allergies/Adverse Reactions: Allergies furosemide [From Lasix] Adverse Reaction (Verified 06/07/18 10:03) gout hydrochlorothiazide Adverse Reaction (Verified 06/07/18 10:03) gout Medications to take at Discharge Amlodipine [Norvasc] 10 mg PO DAILY 04/26/18 Cholecalciferol (Vitamin D3) [Vitamin D3] 2,000 unit PO DAILY 04/26/18 Latanoprost/Pf [Latanoprost 0.005% Eye Drop] 1 drop OP QHS 04/26/18 Metoprolol Tartrate [Lopressor (beta amanda)] 50 mg PO BID 04/26/18 Omeprazole [Prilosec] 20 mg PO PRN PRN 04/26/18 Rivaroxaban [Xarelto] 20 mg PO DAILY 04/26/18 Oxycodone [Oxyir] 5 - 10 mg PO Q4H PRN PRN 5 Days #60 tablet 06/23/18 Senna/Docusate Sodium [Senokot-S] 2 tablet PO BID #20 tablet 06/23/18 The following prescriptions were given: Oxycodone [Oxyir] 5 - 10 mg PO Q4H PRN PRN 5 Days #60 tablet PRN Reason: Mod-Severe Pain (-04/28) Senna/Docusate Sodium [Senokot-S] 2 tablet PO BID #20 tablet Primary Care Physician: Gilles Alberto DO [Primary Care Provider] - Test Results: Test results from this visit will be discussed in further detail at your follow-up appointment, if applicable. Please Follow Up With: [facility] Please Follow Up With: Shiva Sam PA-C When: 07/05/18 @ 8:15 am
[2018-06-23 07:37] VITALS: BP 125/76; PULSE 71; RESP 16; TEMP 37; O2SAT 94
[2018-06-23 07:44] VITALS: PULSE 80
[2018-06-23 07:47] VITALS: PULSE 69
[2018-06-23] MEDS: Metoprolol Tartrate 50 MG Tablet PO (07:47)
[2018-06-23] MEDS: Famotidine 20 MG Tablet PO (07:47)
[2018-06-23] MEDS: Senna/Docusate Sodium 1 Tablet 2 TABLET PO (07:47)
[2018-06-23] MEDS: amLODIPine 10 MG Tablet PO (07:48)
[2018-06-23] MEDS: Rivaroxaban 20 MG Tablet PO (09:10)
--- NOTE | 2018-06-23 10:00 | CASEMGMT ---
RN SONIA Face to Face with patient for initial transition planning/care coordination assessment. RN SONIA introduced self and role at [facility]. Patient sitting in chair, alert and oriented. Patient willing to participate in assessment and is able to answer all questions appropriately. Care providers, pharmacy, and demographics verified. Patient wishes to discharge home and is setup with [facility] for outpatient therapy. Patient states he has no further needs or concerns at this time. CM to follow for discharge planning needs that may arise. PCP: Remy Specialists: Cardiac Vessel Scrapper Bella Johnson Pharmacy: [facility] Insurance: [facility] [place] Prescription Benefit: [place] Living Will/HPOA: Yes Tina Mcconnell LNOK: Living Arrangements: Patient lives with in 1 story home with 2 steps to enter home. Transportation: DME/HHC: Patient has walker and crutches at home. Disposition Plan: Patient to discharge home with outpatient therapy, family support, and follow-up plans in place. Mary MCKENZIE, RN, CM
[2018-06-23] MEDS: oxyCODONE 5 MG Tablet PO (11:01)
[2018-06-23 12:08] VITALS: BP 109/71; PULSE 64; RESP 16; TEMP 37.1; O2SAT 97
== END 2018-06-23 13:10 | disposition home or self-care (01) | DRG 470 ==
PROVIDERS: Admitting Provider Specialist; Family Provider Family Medicine; PCP Family Medicine; Referring Provider Specialist; Visit Provider Specialist
PROC: 0SRC0JA Replacement of Right Knee Joint with Synthetic Substitute, Uncemented, Open Approach (ICD-10-PCS; CPT 27447; principal; 2018-06-22 06:45)
DX: M17.11 Unilateral primary osteoarthritis, right knee (principal); Z96.652 Presence of left artificial knee joint; I10 Essential (primary) hypertension; I48.91 Unspecified atrial fibrillation; Z79.01 Long term (current) use of anticoagulants
CPT/HCPCS: 36415; 73560; 80048; 85025; 85027; 87081; 97110; 97162; 97165; 97530; 99251; C1776; J7120; A4216; G0463; J2405

== ENCOUNTER 2018-09-03 08:00 | Outpatient (RCR) | payer MEDICARE, BC, SELFPAY ==
--- NOTE | 2018-05-14 08:58 | HP.PTEVAL_ITS ---
Patient's Visit Information OSKAR CHRISTIANSON is a 67 year old M referred to Physical Therapy by BRENDA Quiros with a diagnosis of L TKA. Date of Evaluation: 05/14/18 Physical Therapist: Everardo Mendiola PT, - Visit Plan Frequency: 2-3x /Week Duration: 4-6 Weeks Plan: L knee PROM/mobs, stretching and strengthening, balance and proprio, core stab, nustep, and HEP - Subjective Subjective: DOS: 05/11/18. Pt reports he had L knee pain for a long time prior to having his L TKA. Pt reports his pain is different than prior to surgery. Pt reports it hurts less to walk now. No Tingling or numbnvess in L LE. No sleep d ifficulty at this time as long as he takes pain meds. Pt is retired at this time. Pt reports he has 14 stairs into his basement that he negotiated prior to surgery multiple times per day. Pt hasnt attempted them yet. Pt reports no prior surgery to L knee, but notes he had multiple cortisone injections that werent very successful. 1/10 pain at rest, 6/10 at worst (getting into a car or bed transfers) - Pain L knee Pain Intensity (Out of 10): 1 Pain Intensity Range: 6 - Objective Neuro: B LE sensation is WNL to light touch. Unable to assess achilles reflex. Girth at joint line: R knee 41 cm, L knee 46 cm. ROM: R knee 0-115, L knee 0-10-70. MMT: R knee 5/5 throughout, L knee 3-/5 and painful. Observation: Pt has 2+ pitting edema in L LE. No obvious signs of infection - Goals Goal 1:: Decrease L knee pain x 50% to aid with sleep Goal Time Frame: 4-6 Weeks Goal 2:: Increase L knee ROM x 30 degrees to aid with restoring a more normal gait pattern Goal Time Frame: 4-6 Weeks Goal 3:: Increase L knee strength x 1 grade to aid with stair negotiation Goal Time Frame: 4-6 Weeks Goal 4:: I with HEP Goal Time Frame: 4-6 Weeks - Rehabilitation Potential Physical Therapy Diagnosis: L knee pain, weakness, and limited ROM secondary to L TKA Rehabilitation Potential: Good - Anticipated Interventions Patient/Client Instruction: Educate patient on: Condition, Plan of Care For the Purpose of:: To improve self management Therapeutic Exercise to Include: Strength training, Endurance training, Balance training, Flexibilty training, Gait and locomotor training, Passive ROM, Active ROM, Dynamic Lumbar Stabilization For the Purpose of:: To decrease pain, To increase ROM, To improve muscle perfor macy and motor function Cryotherapy (ice pack, ice massage): Yes For the Purpose of:: To decrease pain Thank you for the opportunity to evaluate your patient. For Medicare and Medicare HMO plans, please review the plan of care and approve it. It will need to be FAXED BACK to us at [phone] for Medicare purposes. Please let me know if there are questions or concerns regarding this plan of care. Physician Signature: Date:
--- NOTE | 2018-06-11 08:04 | HP.PTREVAL ---
BRENDA Quiros, It has been my pleasure to treat OSKAR CHRISTIANSON over the last 10 visits for L TKA. Please see the progress note below for an update on the physical therapy plan of care! Subjective: Pt reports mils pain this date Objective/Function: L knee ROM: 0-110 degrees. Girth at joint line: 44 cm. L knee MMT: 4+/5. Pt is progressing well toward Rx goals Plan Plan: L knee PROM/mobs, stretching and strengthening, balance and proprio, core stab, nustep, and HEP Goals Goal 1:: Decrease L knee pain x 50% to aid with sleep Goal Time Frame: 4-6 Weeks Goal Progress: Progressing Goal 2:: Increase L knee ROM x 30 degrees to aid with restoring a more normal gait pattern Goal Time Frame: 4-6 Weeks Goal Progress: Progressing Goal 3:: Increase L knee strength x 1 grade to aid with stair negotiation Goal Time Frame: 4-6 Weeks Goal Progress: Progressing Goal 4:: I with HEP Goal Time Frame: 4-6 Weeks Anticipated Interventions Patient/Client Instruction: Educate patient on: Condition, Plan of Care For the Purpose of:: To improve self management Therapeutic Exercise to Include: Strength training, Endurance training, Balance training, Flexibilty training, Gait and locomotor training, Passive ROM, Active ROM, Dynamic Lumbar Stabilization For the Purpose of:: To decrease pain, To increase ROM, To improve muscle performance and motor function Cryotherapy (ice pack, ice massage): Yes For the Purpose of:: To decrease pain Please do not hesitate to contact me at [phone] by phone or if you have questions or concerns regarding this new plan of care! Sincerely, Everardo Mendiola, PT,
--- NOTE | 2018-06-25 13:29 | HP.PTEVAL2_ITS ---
Patient's Visit Information OSKAR CHRISTIANSON is a 67 year old M referred to Physical Therapy by BRENDA Quiros with a diagnosis of R TKA. Date of Evaluation: 06/25/18 Physical Therapist: Everardo Mendiola PT, - Visit Plan Frequency: 2-3x /Week Duration: 4-6 Weeks Plan: R knee PROM/MOBS, stretching and strengthening, balance/proprio, nustep, and HEP - Subjective Findings: DOS: 06/22/18. Pt had a R TKA performed. Pt had L TKA 05/11/18 and had been rehabbing that knee up until this DOS. Pt reports this knee is much more sore than his L kneee was. Pt reports he was in the hospital until thursday, and has been stretching his knee often. Pt reports he is still experiencing minor difficulty with sleep at this time. 2 steps into the house which pt negotiates one step at a time. Pt also c/o difficulty with car transfers at this time. No tingling or numbness in R LE this date. 1/10 pain while sitting here in the clinic, 5/10 at worst (car transfers) - Pain R knee Intensity: 1 Pain Intensity Range: 5 - Objective Objective: Neuro: B LE sensation is WNL to light touch with exception to R C4 d ermatone is hyposensitive. B achilles reflex= 1/3. Observation: 2+ pitting edema in R LE. Mild bleeding on pad this date. Pt phoned dr office to make them aware during Rx. Girth at joint line: L knee 45 cm, R knee 46 cm. ROM: L knee 0-106 degrees; R knee 0-10-63. MMT: L knee is grossly 4+/5 throughout, R knee is 3/5 and painful - Goals Goal 1:: Decrease R knee pain x 50% to aid with sleep Goal Time Frame: 4-6 Weeks Goal 2:: Increase R knee ROM x 40 degrees to aid with restoring a normalized gait pattern Goal Time Frame: 4-6 Weeks Goal 3:: Increase R knee strength x 1 grade to aid with stair negotiation Goal Time Frame: 4-6 Weeks Goal 4:: I with HEP Goal Time Frame: 4-6 Weeks - Rehabilitation Potential Physical Therapy Diagnosis: R knee pain, swelling, and weakness secondary to R TKA Rehabilitation Potential: Good - Anticipated Interventions Patient/Client Instruction: Educate patient on: Condition, Plan of Care For the Purpose of:: To improve self management Therapeutic Exercise to Include: Strength training, Endurance training, Balance training, Flexibilty training, Gait and locomotor training, Passive ROM, Active ROM, Dynamic Lumbar Stabilization For the Purpose of:: To decrease pain, To increase ROM, To improve muscle performance and motor function Cryotherapy (ice pack, ice massage): Yes For the Purpose of:: To decrease pain Thank you for the opportunity to evaluate your patient. For Medicare and Medicare HMO plans, please review the plan of care and approve it. It will need to be FAXED BACK to us at [phone] for Medicare purposes. For Medicare only, by signing this I certify the plan of care. Please let me know if there are questions or concerns regarding this plan of care. Physician Signature: Date:
--- NOTE | 2018-07-27 10:05 | HP.PTREVAL ---
BRENDA Quiros, It has been my pleasure to treat OSKAR CHRISTIANSON over the last 12 visits for L TKA. Please see the progress note below for an update on the physical therapy plan of care! Subjective: Pt reports pain is minimal this date. Descending stairs is still tough Objective/Function: L knee pain 1/10, does increase to 4/10 with decsending stairs. L knee girth: 45 cm. L knee ROM: 0-110 degrees. L knee MMT: 5/5 throughout Plan Plan: hold chart open Goals Goal 1:: Decrease L knee pain x 50% to aid with sleep Goal Time Frame: 4-6 Weeks Goal Progress: Progressing Goal 2:: Increase L knee ROM x 30 degrees to aid with restoring a more normal gait pattern Goal Time Frame: 4-6 Weeks Goal Progress: Progressing Goal 3:: Increase L knee strength x 1 grade to aid with stair negotiation Goal Time Frame: 4-6 Weeks Goal Progress: Progressing Goal 4:: I with HEP Goal Time Frame: 4-6 Weeks Anticipated Interventions Patient/Client Instruction: Educate patient on: Condition, Plan of Care For the Purpose of:: To improve self management Therapeutic Exercise to Include: Strength training, Endurance training, Balance training, Flexibilty training, Gait and locomotor training, Passive ROM, Active ROM, Dynamic Lumbar Stabilization For the Purpose of:: To decrease pain, To increase ROM, To improve muscle performance and motor function Cryotherapy (ice pack, ice massage): Yes For the Purpose of:: To decrease pain Please do not hesitate to contact me at [phone] by phone or if you have questions or concerns regarding this new plan of care! Sincerely, Everardo Mendiola, PT, ATC
--- NOTE | 2018-09-03 09:01 | HP.PTDCS(2) ---
HP - PT D/C Summary (2) It has been my pleasure to treat OSKAR CHRISTIANSON under orders from BRENDA Quiros, for the diagnosis of R TKA for a total of 21 visit(s). Discharge Date: Please see the following information for a summary of their discharge status. - Subjective Subjective: Minimal to no pain this date - Overall Improvement % Improvement: 80 - Objective Objective/Function/Assessment: B knees 0-1/10. ROM: L knee 0-124, R knee 0-9-115 degrees. MMT: B knees 5/5 throughout. Pt is I with HEP. Rx goals achieved - Goals Patient Goals: Improve Mobility, Improve Function, Decrease Pain, Walk Normal, Maneuver Steps, Sleep Normal Goal 1:: Decrease R knee pain x 50% to aid with sleep Goal Progress: Goal Met Goal 2:: Increase R knee ROM x 40 degrees to aid with restoring a normalized gait pattern Goal Progress: Goal Met Goal 3:: Increase R knee strength x 1 grade to aid with stair negotiation Goal Progress: Goal Met Goal 4:: I with HEP Goal Progress: Goal Met - Plan Plan: R knee PROM/MOBS, stretching and strengthening, balance/proprio, nustep, and HEP - D/C Information If there are questions or concerns regarding this patient's physical therapy, please feel free to call me at [phone]. Thank you for the referral of this patient. Sincerely, Everardo Mendiola, PT, ATC
--- NOTE | 2018-09-03 09:03 | HP.PT.NRP ---
HP - Discharge Summary (1) - Patient Information OSKAR CHRISTIANSON was seen in my office for initial evaluation on 05/14/18. The following Plan of Care was established for this patient: Initial Frequency: 2-3x /Week Initial Duration: 4-6 Weeks - Anticipated Interventions Patient/Client Instruction: Educate patient on: Condition, Plan of Care For the Purpose of:: To improve self management Therapeutic Exercise to Include: Strength training, Endurance training, Balance training, Flexibilty training, Gait and locomotor training, Passive ROM, Active ROM, Dynamic Lumbar Stabilization For the Purpose of:: To decrease pain, To increase ROM, To improve muscle performance and motor function Cryotherapy (ice pack, ice massage): Yes For the Purpose of:: To decrease pain This patient was last seen in our office . Pertinent comments regarding their Physical therapy will appear below: Pt's care for this diagnosis was transferred over to his secondary chart. At this point I will be discontinuing this patient from physical therapy. I would be happy to see this patient again in the future if found appropriate by the physician. Thank you! Everardo Mendiola, PT, ATC
== END 2018-09-03 19:00 | disposition home or self-care (01) ==
LOC: PT 08:00
PROVIDERS: Family Provider Family Medicine; PCP Family Medicine; Referring Provider Physician Assistant Surgical; Visit Provider Physician Assistant Surgical
DX: M17.12 Unilateral primary osteoarthritis, left knee (principal)
CPT/HCPCS: 97016; 97110; 97161; 97530

== ENCOUNTER 2022-03-18 17:54 | Emergency (ER) | payer MEDICARE, BC, SELFPAY ==
[2022-03-18] VITALS (8 sets, daily range): BP systolic 123–133; BP diastolic 74–99; PULSE 98–144; RESP 14–23; TEMP 36.3; O2SAT 95–97; BMI 35.6
--- NOTE | 2022-03-18 18:45 | CT_ITS ---
EXAM: CT ANGIOGRAPHY CHEST WITHOUT AND WITH INTRAVENOUS CONTRAST CLINICAL INDICATION: dyspnea TECHNIQUE: Helically acquired angiography images were obtained of the chest without and with intravenous contrast. This CT exam was performed using one or more of the following dose reduction techniques: automated exposure control, adjustment of the mA and/or kV according to patient size, and/or use of iterative reconstruction technique. This report was created using [employer] report generation technology. MIP reconstructed images were created and reviewed. CONTRAST: IV 100mL Isovue-370 RADIATION DOSE: CTDIvol = 18.43 mGy, DLP = 560.84 mGy-cm COMPARISON: None. FINDINGS: PULMONARY ARTERIES: No demonstrated pulmonary embolism or arterial dissection. AORTA: There is atherosclerotic calcification of the aortic arch with tortuosity and elongation of the aortic arch and descending thoracic aorta. Normal in caliber. No evidence of dissection. GREAT VESSELS OF AORTIC ARCH: Unremarkable. Normal in caliber. No evidence of dissection. LUNGS AND PLEURAL SPACES: Unremarkable. No mass. No consolidation or edema. No pleural effusion or thickening. No pneumothorax. HEART: There are calcifications of the coronary arteries. No pericardial effusion. No signs of right heart strain, ratio of right ventricle to left ventricle measures less than 1. MEDIASTINUM: Unremarkable. No mediastinal or hilar adenopathy. Esophagus is unremarkable. No hiatal hernia. THYROID: Unremarkable. No thyroid lesions. BONES/JOINTS: Total left shoulder arthroplasty. There are degenerative changes of the shoulders. There are multi-level degenerative changes of the thoracic spine. No suspicious lytic or blastic abnormality. LIVER: 10 mm hypodensity in the left lobe of the liver. ACR White Paper guidelines (Austin, et al. JACR 2017; 14(11):6502-3568.) suggest no follow-up is necessary. GALLBLADDER AND BILE DUCTS: Multiple gallstones. CT/CTA Chest W/WO Contrast IMPRESSION: 1. No demonstrated pulmonary embolism or arterial dissection. 2. There are calcifications of the coronary arteries. 3. Multiple gallstones. Electronically Signed: Everardo Avina MD at 20:05 EDT ,
--- NOTE | 2022-03-18 18:45 | EKG12_ITS ---
Test Reason : DYSRHYTHMIA Blood Pressure : / mmHG Vent. Rate : 147 BPM Atrial Rate : 170 BPM P-R Int : 000 ms QRS Dur : 102 ms QT Int : 312 ms P-R-T Axes : 000 002 -31 degrees QTc Int : 488 ms Atrial fibrillation Nonspecific ST abnormality Abnormal ECG Confirmed by LOY POSEY, MIGUEL ([id number]), editorial project manager YEISON LYNN ([id number]) on 03/20/2022 8:12:25 AM Referred By: TL Confirmed By:MIGUEL GRANADO MD
--- NOTE | 2022-03-18 18:48 | EDS_ITS ---
HPI History of Present Illness Chief Complaint: Palpitations Informant: patient and spouse/S.O. Narrative Narrative: Sent in here from oncology Dr. Amaro for A. fib with RVR in the office. Was being established today for recent diagnosis of B-cell lymphoma from excisional biopsy of left knee [address] Gonzalez. History of atrial fibrillation followed by cardiology at [place]. He has had previous cardioversions unsuccessful and 2 cardiac ablations. He states since the procedure has been noting some dyspnea worse with exertion. Denies chest pains denies feeling palpitations denies lightheaded symptoms. He is on Xarelto last dose yesterday evening. Took his metoprolol 50 mg this morning. He is on it twice a day. No complaints currently. Prior similar symptoms: Yes PFSH PFSH Medical History Atrial fibrillation B-cell lymphoma Hyperlipidemia Hypertension Home Medications cholecalciferol (vitamin D3) 50 mcg (2,000 unit) capsule (Vitamin D3) 2,000 unit PO DAILY SUPPLEMENT 04/26/18 [History Last Taken Unknown] latanoprost (PF) 0.005 % eye drops 1 drp OP QHS GLAUCOMA 04/26/18 [History Last Taken Unknown] metoprolol tartrate 50 mg tablet 50 mg PO BID BP,HEART 04/26/18 [History Last Taken 06/22/18 04:00] rivaroxaban 20 mg tablet (Xarelto) 20 mg PO DAILY AFIB 04/26/18 [History Last Taken 06/16/18] sennosides 8.6 mg-docusate sodium 50 mg tablet (Stool Softener-Stimulant Laxative) 2 tab PO BID ##20 06/23/18 [Rx Last Taken Unknown] Centrum Men 1 tablet PO/SL DAILY 03/18/22 [History Last Taken Unknown] Fish Oil 1 caplet PO/SL DAILY 03/18/22 [History Last Taken Unknown] Vitamin C 1,000 mg PO/SL DAILY 03/18/22 [History Last Taken Unknown] atorvastatin 20 mg tablet 20 mg PO DAILY 03/18/22 [History Last Taken Unknown] Allergy/AdvReac Type Severity Reaction Status Date / Time furosemide [From Lasix] AdvReac gout Verified 03/18/22 17:56 hydrochlorothiazide AdvReac gout Verified 03/18/22 17:56 tramadol AdvReac Itching Verified 03/18/22 17:56 Surgical History History of bilateral knee replacement Hx of shoulder replacement Social History Smoking Status: Never smoker ROS ROS ED Constitutional Constitutional ED: Denies chills, fever(s) or sweats Eyes Eyes: Denies change in vision ENT ENT ED: Denies dysphagia or sore throat Cardiovascular Cardiovascular: Denies chest pain, leg edema, palpitations or racing heartbeat Respiratory/Chest Respiratory/Chest: Reports dyspnea on exertion; Denies cough or dyspnea Gastrointestinal Gastrointestinal: Denies abdominal pain, diarrhea, nausea or vomiting Genitourinary Genitourinary ED: Denies dysuria, hematuria or urinary frequency Musculoskeletal Musculoskeletal: Denies back pain, extremity pain or neck pain Integumentary Denies rash or wounds Neurologic Neurologic: Denies headache(s), paresthesias or weakness EXAM Physical Exam Const Vital Signs: 03/18/22 17:58 03/18/22 18:20 03/18/22 18:30 Temperature 97.3 F L Temperature Source Temporal Pulse Rate 118 H 144 H Respiratory Rate 18 23 H Respiratory Effort Normal Respiratory Pattern Normal Blood Pressure 133/84 H 127/99 H Blood Pressure Mean 100 108 Pulse Ox 96 95 Oxygen Delivery Method Room Air Room Air 03/18/22 19:13 03/18/22 19:21 03/18/22 19:25 Temperature Temperature Source Pulse Rate 126 H 107 H Respiratory Rate Respiratory Effort Respiratory Pattern Blood Pressure 127/83 H 123/91 H 126/82 H Blood Pressure Mean 97 101 96 Pulse Ox Oxygen Delivery Method 03/18/22 19:29 03/18/22 20:31 03/18/22 21:19 Temperature Temperature Source Pulse Rate 98 107 H 108 H Respiratory Rate 20 H 14 Respiratory Effort Respiratory Pattern Blood Pressure 123/74 H 127/94 H Blood Pressure Mean 90 Pulse Ox 96 97 Oxygen Delivery Method Room Air Positive well nourished and well developed General Appearance ED: well developed and NAD HEENT Reports moist mucous membranes normocephalic and atraumatic Eyes PERRL, EOMs intact bilaterally and conjunctivae normal General Eye ED: Yes normal appearance of both eyes Neck no lymphadenopathy and supple General: Negative for tenderness Chest Wall Chest: Negative for tenderness Resp normal respiratory effort and normal air movement Effort and Inspection: symmetric chest movement; Negative for respiratory distress Cardio no murmurs Rate: tachycardic Rhythm: abnormal rhythm Peripheral Pulses: pulses 2+ throughout GI normal to inspection, nondistended, normoactive bowel sounds and non-tender Palpation: Negative for guarding or rebound tenderness present Back/Spine no CVA tenderness and no thoracic nor lumbar tenderness Extremity normal to inspection General Extremety ED: Negative for edema or tenderness General Extremity: Negative for edema Neuro oriented x3 and no sensory deficits noted Sensorium / Orientation: awake and alert Skin Skin Narrative: Left knee incision clean, dry, intact. Golf ball mass noted on the distal lateral thigh lateral to the incision. MDM MDM MDM Narrative Medical decision making narrative: Patient Saloni oneal with RVR upon arrival is asymptomatic. Blood pressure stable. He took his morning metoprolol. Additional 3 doses IV Lopressor for heart rate down to low 100s. With his recent leg procedure reporting mild dyspnea CTA chest obtained to rule out PE this returned negative. White count of 13 hemoglobin 14.7. Creatinine 0.99. Troponin negative at 6. He was given his nighttime dose of metoprolol. 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 Return precaution discussed. He will continue his Xarelto. All questions were answered. Lab Data Attestation: I reviewed the patient's lab results. Labs: Laboratory Results - last 24 hr 03/18/22 03/18/22 03/18/22 18:25 18:25 18:25 WBC 13.2 H RBC 4.93 Hgb 14.7 Hct 42.6 MCV 86.4 MCH 29.8 MCHC 34.5 RDW Std Deviation 39.7 RDW Coeff of Pee 12.7 Plt Count 289 MPV 10.5 Immature Gran % (Auto) 1.600 H Neut % (Auto) 78.6 H Lymph % (Auto) 10.3 L [place] % (Auto) 8.0 Eos % (Auto) 0.8 Baso % (Auto) 0.7 Absolute Neuts (auto) 10.4 H Absolute Lymphs (auto) 1.35 Nucleated RBC % 0 PT 15.4 H INR 1.3 APTT 32.4 Sodium 140 Potassium 3.9 Chloride 105 Carbon Dioxide 24.0 Anion Gap 11 BUN 22 H Creatinine 0.99 Estim Creat Clear Calc 65.25 Est GFR (MDRD) Af Amer 96 Est GFR (MDRD) Non-Af 79 BUN/Creatinine Ratio 22.3 H Glucose 90 Calcium 12.3 H Troponin I High Sens 6 Radiography Diagnostic Testing: Clinical Impression(s) from Imaging Studies Chest CTA 03/18/22 18:45 IMPRESSION: 1. No demonstrated pulmonary embolism or arterial dissection. 2. There are calcifications of the coronary arteries. 3. Multiple gallstones. Electronically Signed: Everardo Avina MD at 20:05 EDT , EKG Initial EKG: Attestation: I personally reviewed and interpreted this EKG as follows: Comments: Atrial fibrillation rate of 147, no ST changes T wave inversions in the inferior leads. Discharge Plan Triage Chief Complaint: Palpitations ED Provider: Nicholas Llanes Dx/Rx/DC Orders Clinical Impression: Atrial fibrillation, Dyspnea, B-cell lymphoma Instructions: AFib Dc Prescriptions: No Action metoprolol tartrate 50 MG tablet 50 mg PO BID cholecalciferol (vitamin D3) [Vitamin D3] 2,000 UNIT capsule 2,000 unit PO DAILY Xarelto 20 MG tablet 20 mg PO DAILY latanoprost (PF) 7.5 ML drops 1 drp OP QHS sennosides-docusate sodium [Stool Softener-Stimulant Laxat] 1 TABLET tablet 2 tab PO BID Qty: 20 0RF Rx Instructions: Take until first bowel movement, then as needed atorvastatin 20 mg tablet 20 mg PO DAILY Label Comments: TAKE 1 TABLET BY MOUTH EVERY DAY Centrum Men 1 tablet PO/SL DAILY Fish Oil 1 caplet PO/SL DAILY Vitamin C 1,000 mg PO/SL DAILY Primary Care Provider: Gilles Alberto Referrals: Gilles Alberto DO [Primary Care Provider] - 3-5 Days Activity Restrictions/Additional Instructions: CTA negative for PE or any acute findings. Continue metoprolol 50 mg twice a day. Continue your Xarelto. Follow-up with your jig mill operator. Return if any worsening symptoms. Disposition Disposition: Home, Self Care Discharge Date/Time: 03/18/22 21:47
[2022-03-18 19:05] LABS: Absolute Lymphocyte Count 1.35 X10^3/uL (0.83-4.51); Absolute Neutrophil Count 10.4 X10^3/uL (2.0-7.7); Basophil# 0.09 X10^3/uL; Basophil% 0.7 % (0-1); Eosinophils% 0.8 % (0-5); Hematocrit 42.6 % (40-54); Hemoglobin 14.7 g/dL (13.0-16.5); Lymphocyte # 1.35 X10^3/ul (0.83-4.51); Lymphocyte % 10.3 % (19-41); Mean Corp Hgb Conc 34.5 g/dL (32-36); Mean Corpuscular Hgb 29.8 pg (27.0-32.0); Mean Corpuscular Volume 86.4 fL (80-94); Mean Platelet Vol. 10.5 fl (6.2-12.0); Monocyte# 1.05 X10^3/uL; NRBC Flagged by Analyzer 0 % (0-5); Neutrophil # 10.36 X10^3/uL (2.7-7.7); Neutrophil % 78.6 % (47-70); Platelet Count 289 K/mm3 (150-450); RBC Distribution Width CV 12.7 % (11.6-14.6); RBC Distribution Width SD 39.7 fl (35.1-43.9); Red Blood Count 4.93 M/mm3 (4.6-6.2); White Blood Count 13.2 K/mm3 (4.4-11.0)
[2022-03-18] MEDS: Metoprolol Tartrate 5 MG/5 ML Vial IV ×3 (19:12→19:24)
[2022-03-18 19:14] LABS: International Normalized Ratio 1.3; Prothrombin Time (Protime)PT. 15.4 SECONDS (11.7-14.9)
[2022-03-18 19:15] LABS: Partial Thromboplast Time 32.4 Seconds (24.1-36.2)
[2022-03-18 19:29] LABS: Anion Gap 11 (5-15); BUN 22 mg/dL (7-18); BUN/Creat Ratio 22.3 RATIO (10-20); Calcium,Total 12.3 mg/dL (8.5-10.1); Chloride 105 mmol/L (98-107); Creatinine, Serum 0.99 mg/dL (0.70-1.30); EST Glomerular Filtration Rate 79 mL/min (>60); Est Glom Filt Rate - Afr Amer 96 mL/min (>60); Estimated Creatinine Clearance 65.25 ml/min; Glucose 90 mg/dL (74-106); Potassium 3.9 mmol/L (3.5-5.1); Sodium Level 140 mmol/L (136-145); Troponin-I HS 6 pg/mL (3.0-78.0)
[2022-03-18] MEDS: Metoprolol Tartrate 25 MG Tablet 50 MG PO (21:27)
== END 2022-03-18 21:47 | disposition home or self-care (01) ==
PROVIDERS: Emergency Provider Emergency Medicine; PCP Family Medicine; Visit Provider Emergency Medicine
DX: I48.91 Unspecified atrial fibrillation (principal); C85.10 Unspecified B-cell lymphoma, unspecified site; I10 Essential (primary) hypertension; E78.5 Hyperlipidemia, unspecified; Z79.01 Long term (current) use of anticoagulants; R06.00 Dyspnea, unspecified
CPT/HCPCS: 71275; 80048; 84484; 85025; 85610; 85730; 93005; 99285; Q9967; A4216

== ENCOUNTER → 2022-03-21 | Outpatient (CLI) | payer MEDICARE, BC, SELFPAY ==
[2022-03-21 09:11] VITALS: BP 108/80; PULSE 94; RESP 18; TEMP 36.1; O2SAT 98; BMI 34.7
--- NOTE | 2022-03-21 10:19 | RAD_ITS ---
STUDY: X-RAY CHEST REASON FOR EXAM: Male, 71 years old. POST LINE PLACEMENT TECHNIQUE: Single AP portable view of the chest. COMPARISON: None. FINDINGS: A right-sided PICC line catheter has been placed. The tip is at the junction of the superior vena cava and right atrium. The lungs are clear and expanded. There is no demonstrated pleural abnormality. Normal size heart. Normal mediastinum and [place]. Normal visualized pulmonary arteries. There is atherosclerotic tortuosity of the aortic arch and descending thoracic aorta. There are diffuse degenerative changes of the visualized thoracic spine. The patient status post left shoulder replacement. Hiatal hernia. RAD/CXR for Line Placement IMPRESSION: The tip of the right PICC line catheter is at the junction of the superior vena cava and right atrium. No acute abnormality is seen. Electronically Signed: Ishmael Goldberg MD at 10:52 EDT ,
== END | disposition home or self-care (01) ==
LOC: RAD 08:40
PROVIDERS: PCP Family Medicine; Referring Provider Internal Medicine Hematology & Oncology; Visit Provider Internal Medicine Hematology & Oncology
DX: C83.39 Diffuse large B-cell lymphoma, extranodal and solid organ sites (principal)
CPT/HCPCS: 36569; 71045

== ENCOUNTER → 2022-03-26 | Outpatient (CLI) | payer MEDICARE, BC, SELFPAY ==
--- NOTE | 2022-03-26 14:24 | VDLE_ITS ---
Reason For Study: LLE swellling Procedure LEFT This is a venous duplex using B-mode, color GSV is normal. flow and spectral Doppler. CFV is compressible, spontaneous, phasic, Exam performed in department. competent, and demonstrates normal The study was technically difficult. augmentation. Due to amount of swelling. FV is compressible, spontaneous, phasic, A preliminary report was called and/or faxed competent and demonstrates normal to Ddr. Maria Esthermarito @ [phone] @ 3:00 pm. augmentation. Images 12 & 13 show area of biopsy. POP V is compressible, spontaneous, phasic, competent and demonstrates normal augmentation. T/P Trunk is compressible. PTV is compressible. LT PerV is compressible. VL/Venous Duplex US, Unilateral Interpretation Summary Deep veins of the left lower extremity are patent and compressible segmentally. There is no evidence of left lower extremity deep vein thrombosis. Valvular competence appears intac t within the proximal deep venous system on the left . The left great saphenous vein appears patent a nd compressible segmentally. Ordering Physician: Phu Amaro Referring Physician: Gilles Alberto Performed By: Lexie Fair, RDCS, RVT
== END | disposition home or self-care (01) ==
LOC: CVS 14:23
PROVIDERS: PCP Family Medicine; Referring Provider Internal Medicine Hematology & Oncology; Visit Provider Internal Medicine Hematology & Oncology
DX: C83.39 Diffuse large B-cell lymphoma, extranodal and solid organ sites (principal); M79.89 Other specified soft tissue disorders
CPT/HCPCS: 93971